=== PATIENT | male | born 1960 | race Caucasian/White ===

== ENCOUNTER 2017-01-02 19:42 | Inpatient (IN) | payer MEDICAID ==
--- NOTE | 2017-01-02 19:58 | ED ---
I, Johnson,Gerald, scribed for Nate Samayoa MD on 01/02/17 at 1953 . Neurological HPI - HPI Summary HPI Summary: LEVEL 5 CAVEAT secondary to AMS and impaired speech. This 56 y/o male presents to ED for acute onset of stroke-like symptoms between 1800 PM and 1830 PM. Pt was on wine tour and was present at a winery at 1800 PM appearing at his baseline. EMT reports slurred speech and complaints of left sided facial numbness before or at 1830 PM. Symptoms persist at time of initial evaluation. No focal weakness reported or noted at time of initial evaluation. PMHx includes afib, but not DM. Finger stick was 120. Pt denies Hx of hemorrhagic CVA. Pt articulate that he is on anticoagulant, possibly on coumadin , but pt is unable to elaborate if he had his dose today or not. Margaret whitfield was called at 1945 PM. Primary care involves Dr. Bunch. - History of Current Complaint Stated Complaint: NUMBNESS/SLURRED SPEECH Time Seen by Provider: 01/02/17 19:48 Hx Obtained From: Patient Onset/Duration: Sudden Onset Timing: Constant Character: Numbness/Tingling, Impaired Speech - Allergy/Home Medications Allergies/Adverse Reactions: Allergies Allergy/AdvReac Type Severity Reaction Status Date / Time Penicillins Allergy Unknown Unknown Verified 01/02/17 20:19 Reaction Details Sulfa Antibiotics Allergy Unknown Unknown Verified 01/02/17 20:19 Reaction Details Home Medications: Home Medications Aspirin Low Dose CHEW TAB* [Aspirin Low Dose TAB*] 81 mg PO DAILY 01/02/17 [ History Confirmed 01/02/17] Atorvastatin* [Lipitor*] 10 mg PO DAILY 01/02/17 [History Confirmed 01/02/17] Fluticasone NASAL SPRAY 50MCG* [Flonase NASAL SPRAY 50MCG*] 2 spray BOTH NARES DAILY 01/02/17 [History Confirmed 01/02/17] Metoprolol Succinate [Toprol Xl] 25 mg PO DAILY 01/02/17 [History Confirmed 07/09] Metoprolol Tartrate TAB* [Lopressor TAB*] 100 mg PO DAILY 01/02/17 [History Confirmed 01/02/17] Pantoprazole Sodium [Protonix] 40 mg PO DAILY 01/02/17 [History Confirmed ] busPIRone TAB* [Buspar TAB*] 5 mg PO BID 01/02/17 [History Confirmed 01/02/17] PMH/Surg Hx/FS Hx/Imm Hx Cardiovascular History: Reports: Hx Atrial Fibrillation - Family History Known Family History: Positive: Unknown - LEVEL 5 CAVEAT secondary to AMS and impaired speech - Social History Smoking Status (MU): Unknown if Ever Smoked - LEVEL 5 CAVEAT secondary to AMS and impaired speech Review of Systems - ROS Summary Review of Systems Summary: LEVEL 5 CAVEAT secondary to AMS Negative: Fever Positive: Other - BG of 120. Positive: Numbness - left facial, Slurred Speech All Other Systems Reviewed And Are Negative: No Physical Exam Triage Information Reviewed: Yes Vital Signs Reviewed: Yes Appearance: Positive: No Pain Distress, Ill-Appearing Skin: Positive: Warm Head/Face: Positive: Normal Head/Face Inspection Eyes: Positive: IRMA ENT: Positive: Hearing grossly normal Neck: Positive: Supple Respiratory/Lung Sounds: Positive: Clear to Auscultation, Breath Sounds Present Cardiovascular: Positive: IRR, Tachycardia Abdomen Description: Positive: Nontender, Soft Bowel Sounds: Positive: Present Musculoskeletal: Positive: Strength/ROM Intact Neurological: Positive: Facial Droop, Slurred Speech, Heel to Toe Psychiatric: Positive: Affect/Mood Appropriate, Anxious Diagnostics - Laboratory Result Diagrams: 01/02/17 20:10 01/02/17 20:10 Lab Statement: Any lab studies that have been ordered have been reviewed, and results considered in the medical decision making process. - Radiology CXR Xray Interpretation: Positive (See Comments) - PATCHY ATELECTASIS OF THE LEFT LUNG BASE Radiology Interpretation Completed By: Radiologist - CT Brain CT Interpretation: No Acute Changes - INCREASED ATTENUATION OF THE M1 SEGMENT OF THE RIGHT MCA CONCERNING FOR MCA THROMBUS WITH A DENSE MCA SIGN GIVEN THE HISTORY OF STROKE. OTHERWISE, NO ACUTE INTRACRANIAL PATHOLOGY. PRELIMINARY FINDINGS WERE DISCUSSED WITH DR. BOB AT APPROXIMATELY 8:04 PM ON JANUARY 02, 2017. CT Interpretation Completed By: Radiologist CTA Head CT Interpretation: No Acute Changes - 1. NO INTERNAL CAROTID ARTERY STENOSIS BY NASCET CRITERIA 2. NO ANEURYSM, VASCULAR MALFORMATION, OCCLUSION, OR STENOSIS OF THE VISUALIZED INTRACRANIAL CIRCULATION. CT Interpretation Completed By: Radiologist CTA Head/Neck CT Interpretation Completed By: Radiologist - EKG 2000 EKG Rhythm: Atrial Fibrillation - 124 bpm EKG Interpretation: afib with rapid ventricular response NIH Scale - NIH Scale Level of Consciousness: Alert/Keenly Responsive Ask Patient the Month and His/Her Age: Both Correct Ask Pt to Open/Close Eyes and Audio Visual Engineer/Release Non-Paretic Hand: Both Correctly Best Gaze (Only Horizontal Eye Movement): Partial Gaze Palsy Visual Field Testing: No Visual Loss Facial Paresis-Pt to Smile & Close Eyes or Grimace Symmetry: Minor Paralysis Motor Function - Right Arm: Drifts LT 10 seconds Motor Function - Left Arm: No Drift-Holds 10 Seconds Motor Function - Right Leg: Drifts LT 10 seconds Motor Function - Left Leg: No Drift-Holds 10 Seconds Limb Ataxia-Must be out of Proportion to Weakness Present: Present in One Limb Sensory (Use Pinprick to Test Arms/Legs/Trunk/Face): Normal Best Language (Describe Picture, Name Items): Some Loss Dysarthria (Read Several Words): Slurs Some Words Extinction and Inattention: No Abnormality Total Score: 7 Re-Evaluation - Re-Evaluation First Eval Change: Unchanged Comment: pt seen and evaluated in ed by dr brooks Course/Dx - Course Assessment/Plan: This 56 y/o male presents to ED for acute onset of slurred speech and left sided facial numbness. Pt was seen at [facility] at 1800 PM, appearing at his baseline. Pt suddenly developed slurred speech some time between 1800 PM and 1830 PM. Margaret mena was called 1944 PM upon arrival to ED. PMHx is positive for afib. Pt reports being on coumadin, but was not able to elaborate if he has taken today's dose or not. Blood work indicates INR of 1.05. CT Brain indicates no acute intracranial pathology with INCREASED ATTENUATION OF THE M1 SEGMENT OF THE RIGHT MCA CONCERNING FOR MCA THROMBUS WITH A DENSE MCA SIGN GIVEN THE HISTORY OF STROKE. CXR is noted with patchy atelectasis at left lung base. Dr. Brooks (Neurologist consulting sales executive) was consulted. Pt was evaluated by Dr. Brooks in ED. After clarifying his med list with [employer] [facility] and confirming that he is not on anticoagulant, tPA was ordered by Dr. Brooks. Margaret Whitfield called again with recurrent slurred speech at [address] Brooks. - Diagnoses Provider Diagnoses: CVA (cerebral vascular accident) During the Visit The Following Alert/Code Occurred: Margaret Whitfield - 1944 PM - Physician Notifications Discussed Care Of Patient With: Sandra Brooks - 1954 Instructed by Provider To: Admit As Inpatient - Critical Care Time Critical Care Time: 30-74 min Discharge - Discharge Plan Condition: Critical Disposition: ADMITTED TO [facility] documentation as recorded by the Johnson eden Soohyun accurately reflects the service I personally performed and the decisions made by me, Nate Samayoa MD.
--- NOTE | 2017-01-02 20:08 | RAD ---
HISTORY: Slurred speech COMPARISONS: None TECHNIQUE: Multiple contiguous axial CT scans were obtained of the head without intravenous contrast. FINDINGS: HEMORRHAGE/INFARCT: There is no hemorrhage or acute infarct. MASSES/SHIFT: There is no mass or shift. EXTRA-AXIAL SPACES: There are no extra-axial fluid collections. SULCI AND VENTRICLES: The sulci and ventricles are normal in size and position for the patient's stated age. CEREBRUM: There are no focal parenchymal abnormalities. BRAINSTEM: There are no focal parenchymal abnormalities. CEREBELLUM: There are no focal parenchymal abnormalities. VESSELS: There is increased attenuation of the M1 segment of the right middle cerebral artery best seen on axial image 11 and 12. PARANASAL SINUSES: The paranasal sinuses are clear. ORBITS: The orbits are unremarkable. BONES AND SOFT TISSUE: No bone or soft tissue abnormalities are noted. OTHER: None IMPRESSION: INCREASED ATTENUATION OF THE M1 SEGMENT OF THE RIGHT MCA CONCERNING FOR MCA THROMBUS WITH A DENSE MCA SIGN GIVEN THE HISTORY OF STROKE. OTHERWISE, NO ACUTE INTRACRANIAL PATHOLOGY. PRELIMINARY FINDINGS WERE DISCUSSED WITH DR. BOB AT APPROXIMATELY 8:04 PM ON JANUARY 02, 2017.
[2017-01-02 20:18] LABS: Hematocrit 48 % (42-52); Hemoglobin 15.4 g/dl (14.0-18.0); Mean Corpuscular HGB Conc 32 g/dl (31-36); Mean Corpuscular Hemoglobin 29 pg (27-31); Mean Corpuscular Volume 91 fL (80-94); Mean Platelet Volume 8 um3 (7.4-10.4); Red Blood Count 5.29 10^6/ul (4.0-5.4); Red Cell Distribution Width 14 % (10.5-15); White Blood Count 11.1 10^3/ul (3.5-10.8)
[2017-01-02] MEDS ORDERED: Alteplase* 100 MG VIAL ONE (20:23)
[2017-01-02] MEDS ORDERED: ALTEPLASE IVPB ONE (20:30)
[2017-01-02] MEDS ORDERED: ALTEPLASE IV ONE (20:30)
[2017-01-02 20:33] LABS: Albumin 3.9 g/dL (3.2-5.2); BUN/Creatinine Ratio 18.2 (8-20); Calcium 9.1 mg/dL (8.6-10.3); EGFR African American 88.7 (>60); Globulin 2.9 g/dL (2-4); HDL Cholesterol 31.7 mg/dL; Potassium 4.2 mmol/L (3.5-5.0); Total Bilirubin 0.7 mg/dL (0.2-1.0); Total Protein 6.8 g/dL (6.4-8.9)
--- NOTE | 2017-01-02 20:58 | RAD ---
HISTORY: Stroke COMPARISONS: None VIEWS:1: Single frontal portable view of the chest at 8:32 PM FINDINGS: LINES AND TUBES: None. CARDIOMEDIASTINAL SILHOUETTE: The cardiomediastinal silhouette is normal for portable technique. PLEURA: The costophrenic angles are sharp. No pleural abnormalities are noted. LUNG PARENCHYMA: There is minimal patchy alveolar opacification of left lung base near the costophrenic angle ABDOMEN: The upper abdomen is clear. There is no subphrenic gas. BONES AND SOFT TISSUES: No bone or soft tissue abnormalities are noted. IMPRESSION: PATCHY ATELECTASIS OF THE LEFT LUNG BASE
[2017-01-02] MEDS ORDERED: Iohexol 350* (CONTRAST) 500 ML MDV IV ONE (21:24)
[2017-01-02] MEDS ORDERED: Acetaminophen TAB* 325 MG PO PRN (21:44)
[2017-01-02] MEDS ORDERED: Albuterol 2.5 MG/3 ML NEB.SOL* (0.083%) INH PRN (21:44)
[2017-01-02] MEDS ORDERED: hydrALAZINE IV* 20 MG/ML VIAL IV PRN (21:47)
--- NOTE | 2017-01-02 21:50 | RAD ---
HISTORY: Stroke COMPARISONS: Head CT dated January 02, 2017 TECHNIQUE: Multiple contiguous axial CT scans were obtained of the head before and after and of the neck After the administration of nonionic intravenous contrast timed to the systemic arterial phase of contrast enhancement. Coronal and sagittal multiplanar reformations are submitted for review. Multiple 3-D maximum intensity projection reconstructions are also submitted for review. FINDINGS: CTA NECK: AORTIC ARCH: There is a normal three-vessel branching pattern of the aortic arch. There is no ostial or proximal stenosis of the cephalic great vessels. RIGHT VERTEBRAL ARTERY: The right vertebral artery is patent along its course, without stenosis. LEFT VERTEBRAL ARTERY: The left vertebral artery is patent along its course, without stenosis. DOMINANCE: The right vertebral artery is dominant. RIGHT COMMON CAROTID ARTERY: The right common carotid artery is patent. The right carotid bifurcation occurs at C5 RIGHT INTERNAL CAROTID ARTERY: There is no right internal carotid artery stenosis by NASCET criteria. RIGHT EXTERNAL CAROTID ARTERY: The right external carotid artery is unremarkable. LEFT COMMON CAROTID ARTERY: The left common carotid artery is patent. The left carotid bifurcation occurs at C5-C6 LEFT INTERNAL CAROTID ARTERY: There is no left internal carotid artery stenosis by NASCET criteria. LEFT EXTERNAL CAROTID ARTERY: The left external carotid artery is unremarkable. VENOUS CIRCULATION: The venous system is unremarkable. SALIVARY GLANDS: The parotid glands, submandibular glands, sublingual glands are normal. NASAL CAVITY/NASOPHARYNX: The nasal cavity and nasopharynx are normal. ORAL CAVITY/OROPHARYNX: The oral cavity is obscured by streak artifact from dental amalgam. The visualized oral cavity and oropharynx are unremarkable. LARYNGEAL APPARATUS/HYPOPHARYNX: The laryngeal apparatus and hypopharynx are normal. UPPER AIRWAY/UPPER ESOPHAGUS: The visualized upper airway and esophagus are normal. LUNG APICES: The lung apices are clear. THYROID GLAND: The thyroid gland is normal. LYMPH NODES: There is no lymphadenopathy by size criteria. BONES AND SOFT TISSUES: No bone or soft tissue abnormalities are noted. CTA HEAD: INTRACRANIAL CIRCULATION: There is no aneurysm, vascular malformation, occlusion, or stenosis of the visualized intracranial circulation. The anterior communicating artery complex is clear. Bilateral posterior communicating arteries are identified. VENOUS CIRCULATION: The venous system is unremarkable. PERFUSION: There is no obvious parenchymal perfusion deficit. HEMORRHAGE/INFARCT: There is no hemorrhage or acute infarct. MASSES/SHIFT: There is no mass or shift. EXTRA-AXIAL SPACES: There are no extra-axial fluid collections. SULCI AND VENTRICLES: The sulci and ventricles are normal in size and position for the patient's stated age. CEREBRUM: There are no focal parenchymal abnormalities. BRAINSTEM: There are no focal parenchymal abnormalities. CEREBELLUM: There are no focal parenchymal abnormalities. PARANASAL SINUSES: The paranasal sinuses are clear. ORBITS: The orbits are unremarkable. BONES AND SOFT TISSUE: No bone or soft tissue abnormalities are noted. OTHER: There is no abnormal enhancement. IMPRESSION: 1. NO INTERNAL CAROTID ARTERY STENOSIS BY NASCET CRITERIA 2. NO ANEURYSM, VASCULAR MALFORMATION, OCCLUSION, OR STENOSIS OF THE VISUALIZED INTRACRANIAL CIRCULATION. CPT II Codes: 3100F
[2017-01-02] MEDS ORDERED: Ondansetron INJ* 2 MG/ML VIAL IV PRN (22:04)
--- NOTE | 2017-01-02 22:07 | HP ---
H&P (Free Text) History and Physical: Cardiology: Dr Bunch [facility] Date/Time of Evaluation: 01/02/2017 2200 CC: CVA HPI: Mr Jones is a 56YO male HX AFIB who was touring a winery when he experienced the sudden onset of slurred speech, gaze disturbance, RUE/BLE ataxia , and N/T L chin. Arrived to [facility] ED at 1940. Margaret whitfield called. Luli Brooks MD neurology was in house, evaluated and administered tPA at 2034. His speech and gaze disturbance resoluved, but during tPA infusion he developed a headache with resurgence of his dysarthia and gaze disturbance prompting a repeat Margaret whitfield to be called. Repeat CT brain WO was unchanged. CTA head/neck was negative. He will be admitted to ICU for post-tPA protocol, MRI brain in AM, & ECHO in AM. PMedHx AFIB HLD GERD depression Ambulatory Orders Aspirin Low Dose CHEW TAB* [Aspirin Low Dose TAB*] 81 mg PO DAILY 01/02/17 (not taking) Atorvastatin* [Lipitor*] 10 mg PO DAILY 01/02/17 Fluticasone NASAL SPRAY 50MCG* [Flonase NASAL SPRAY 50MCG*] 2 spray BOTH NARES DAILY 01/02/17 Metoprolol Succinate [Toprol Xl] 25 mg PO DAILY 01/02/17 Metoprolol Tartrate TAB* [Lopressor TAB*] 100 mg PO DAILY 01/02/17 Pantoprazole Sodium [Protonix] 40 mg PO DAILY 01/02/17 busPIRone TAB* [Buspar TAB*] 5 mg PO BID 01/02/17 Allergies Penicillins Allergy (Unknown, Verified 01/02/17 20:19) Unknown Reaction Details Sulfa Antibiotics Allergy (Unknown, Verified 01/02/17 20:19) Unknown Reaction Details SocHx: no tobacco, minimal alcohol, HX marijuana but none currently; single; full code status FamHx: unobtainable ROS: as above, otherwise reviewed and all were negative Constitutional: NAD, normally developed, well-nourished obese white male vitals: Vital Signs Temp 36.1 C 01/02/17 19:50 Pulse 40 01/02/17 22:00 Resp 24 01/02/17 22:00 BP 139/95 01/02/17 22:00 Pulse Ox 95 01/02/17 22:00 Intake & Output 01/01/17 01/02/17 01/02/17 23:59 11:59 23:59 Intake Total 81 Balance 81 Weight 106.141 kg Intake: IV Fluids 81 HEENM: atraumatic; sclera/conjunctiva: non-icteric/clear; hearing: unable to adequately assess; oropharynx: clear, mucosa moist Neck: soft tissue: non-tender; thyroid: normal Pulmonary: clear to auscultation bilaterally, good aeration, no accessory muscle use CV: RR/RR, normal S1S2, no carotid bruit, no jugular venous distention, 2+ B DP/ PT, no edema Abdominal: soft, non-distended, non-tender, no rebound/guarding/rigidity, normoactive bowel sounds, no hepatosplenomegaly or masses, no costovertebral angle tenderness Musculoskeletal: general: grossly intact; gait: too critical currently to ambulate Integumental: normal appearance and texture of exposed skin Neurological deferred to Luli Brooks MD neurology Psychiatric orientation: AA&O to PP, uncertain as to situation affect: calm mood: acquiescent eye contact: poor content: difficult to comprehend, uncertain as to reliability responses: slowed insight: unable to accurately assess Testing: Lab Results 01/02/17 01/02/17 01/02/17 Range/Units 20:10 20:10 20:10 WBC 11.1 H (3.5-10.8) 10^3/ul RBC 5.29 (4.0-5.4) 10^6/ul Hgb 15.4 (14.0-18.0) g/dl Hct 48 (42-52) % MCV 91 (80-94) fL MCH 29 (27-31) pg MCHC 32 (31-36) g/dl RDW 14 (10.5-15) % Plt Count 285 (150-450) 10^3/ul MPV 8 (7.4-10.4) um3 Neut % (Auto) 59.2 (38-83) % Lymph % (Auto) 28.2 (25-47) % Crisp % (Auto) 9.3 H (1-9) % Eos % (Auto) 2.2 (0-6) % Baso % (Auto) 1.1 (0-2) % Absolute Neuts (auto) 6.6 (1.5-7.7) 10^3/ul Absolute Lymphs (auto) 3.1 (1.0-4.8) 10^3/ul Absolute Monos (auto) 1.0 H (0-0.8) 10^3/ul Absolute Eos (auto) 0.2 (0-0.6) 10^3/ul Absolute Basos (auto) 0.1 (0-0.2) 10^3/ul Absolute Nucleated RBC 0.02 10^3/ul Nucleated RBC % 0.1 INR (Anticoag Therapy) 1.05 (0.89-1.11) APTT 25.4 L (26.0-36.3) seconds Sodium 134 (133-145) mmol/L Potassium 4.2 (3.5-5.0) mmol/L Chloride 104 (101-111) mmol/L Carbon Dioxide 21 L (22-32) mmol/L Anion Gap 9 (2-11) mmol/L BUN 20 (6-24) mg/dL Creatinine 1.10 (0.67-1.17) mg/dL Est GFR ( Amer) 88.7 (>60) Est GFR (Non-Af Amer) 69.0 (>60) BUN/Creatinine Ratio 18.2 (8-20) Glucose 136 H (70-100) mg/dL Lactic Acid (0.5-2.0) mmol/L Calcium 9.1 (8.6-10.3) mg/dL Total Bilirubin 0.70 (0.2-1.0) mg/dL AST 24 (13-39) U/L ALT 41 (7-52) U/L Alkaline Phosphatase 55 (34-104) U/L Troponin I 0.00 (<0.04) ng/mL Total Protein 6.8 (6.4-8.9) g/dL Albumin 3.9 (3.2-5.2) g/dL Globulin 2.9 (2-4) g/dL Albumin/Globulin Ratio 1.3 (1-3) Triglycerides 96 mg/dL Cholesterol 161 mg/dL LDL Cholesterol 110 mg/dL HDL Cholesterol 31.7 mg/dL 01/02/17 Range/Units 20:10 WBC (3.5-10.8) 10^3/ul RBC (4.0-5.4) 10^6/ul Hgb (14.0-18.0) g/dl Hct (42-52) % MCV (80-94) fL MCH (27-31) pg MCHC (31-36) g/dl RDW (10.5-15) % Plt Count (150-450) 10^3/ul MPV (7.4-10.4) um3 Neut % (Auto) (38-83) % Lymph % (Auto) (25-47) % Crisp % (Auto) (1-9) % Eos % (Auto) (0-6) % Baso % (Auto) (0-2) % Absolute Neuts (auto) (1.5-7.7) 10^3/ul Absolute Lymphs (auto) (1.0-4.8) 10^3/ul Absolute Monos (auto) (0-0.8) 10^3/ul Absolute Eos (auto) (0-0.6) 10^3/ul Absolute Basos (auto) (0-0.2) 10^3/ul Absolute Nucleated RBC 10^3/ul Nucleated RBC % INR (Anticoag Therapy) (0.89-1.11) APTT (26.0-36.3) seconds Sodium (133-145) mmol/L Potassium (3.5-5.0) mmol/L Chloride (101-111) mmol/L Carbon Dioxide (22-32) mmol/L Anion Gap (2-11) mmol/L BUN (6-24) mg/dL Creatinine (0.67-1.17) mg/dL Est GFR ( Amer) (>60) Est GFR (Non-Af Amer) (>60) BUN/Creatinine Ratio (8-20) Glucose (70-100) mg/dL Lactic Acid 1.4 (0.5-2.0) mmol/L Calcium (8.6-10.3) mg/dL Total Bilirubin (0.2-1.0) mg/dL AST (13-39) U/L ALT (7-52) U/L Alkaline Phosphatase (34-104) U/L Troponin I (<0.04) ng/mL Total Protein (6.4-8.9) g/dL Albumin (3.2-5.2) g/dL Globulin (2-4) g/dL Albumin/Globulin Ratio (1-3) Triglycerides mg/dL Cholesterol mg/dL LDL Cholesterol mg/dL HDL Cholesterol mg/dL ECG, personally reviewed: AFIB rate 124, no ischemia CT brain WO, personally reviewed: IMPRESSION: INCREASED ATTENUATION OF THE M1 SEGMENT OF THE RIGHT MCA CONCERNING FOR MCA THROMBUS WITH A DENSE MCA SIGN GIVEN THE HISTORY OF STROKE. OTHERWISE, NO ACUTE INTRACRANIAL PATHOLOGY. PRELIMINARY FINDINGS WERE DISCUSSED WITH DR. BOB AT APPROXIMATELY 8:04 PM ON JANUARY 02, 2017. CTA head/neck, personally reviewed: IMPRESSION: 1. NO INTERNAL CAROTID ARTERY STENOSIS BY NASCET CRITERIA 2. NO ANEURYSM, VASCULAR MALFORMATION, OCCLUSION, OR STENOSIS OF THE VISUALIZED INTRACRANIAL CIRCULATION. Impression: 56M presenting with acute multi-focal CVA 2nd AFIB s/p tPA DIAGNOSIS & PLAN Primary acute CVA involving the posterior circulation and the likely M1 segment R MCA 2nd AFIB s/p tPA : ICU monitoring : post-tPA protocol : MRI in AM : ECHO in AM : Luli Brooks MD neurology evaluated in ED, will follow, assistance appreciated : supplemental oxygen : anti-emetic : initiate atorvastatin : strict NPO : PT/OT/ST evaluations : supportive care Secondary AFIB RVR : avoid diltiazem & metoprolol as pressures are borderline low : 0.25mg IV digoxin : permissive tachycardia up to 120s as long as symptoms are stable GERD : IV pantoprazole HLD : increase atorvastatin from 10 to 20mg daily Admission Rational: inpatient for ICU management of acute CVA s/p tPA DVTp: tPA for first 24H then reassess Code Status: full
[2017-01-02] MEDS: NS 0.9% 1000 ML* 1,000 ML IV SCH (22:28)
--- NOTE | 2017-01-02 23:36 | CONS ---
CONSULTATION REPORT: DATE OF CONSULT: 01/02/17 LAST KNOWN WELL: 18:00. ARRIVAL TO THE ER: 19:42. NIH stroke scale was 8. TPA was given at 20:35 and held briefly at 20:10, restarted at 21:20. TPA was held secondary to headache until a CT was completed and cleared. HISTORY OF PRESENT ILLNESS: David Jones is a 56-year-old gentleman with a history of atrial fibrillation who had an active day today, and it was when he went to a [employer] around 1800 he was noted to be well. At 1830, slurred speech was noted and EMS was activated per report. In the emergency room, he was noted to have slurred speech. I met him in the CT scanner where he had emesis. CT of the brain was questioned to show a dense right MCA sign. This occurred in the setting of atrial fibrillation. At first, there was question of whether he was on anticoagulant. He was having difficulty giving his names of medications. As his speech improved, we were able to call his pharmacy and confirmed with him that the only medication he takes is from his pharmacy, which is [facility] in [place]. He is on no anticoagulants. He used to be on aspirin and he is not taking that. He follows with Dr. Bunch in [place] for Cardiology. 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 PAST MEDICAL HISTORY: Includes atrial fibrillation. Other diagnoses are suspected based on medication list, however patient had difficulty giving further history. MEDICATIONS: He is on: 1. Pantoprazole 40 mg p.o. daily. 2. Buspirone 5 mg b.i.d. 3. Metoprolol. 4. Atorvastatin 10 mg p.o. daily. 5. Fluticasone 2 puffs daily. 6. Aspirin, which he is not taking. ALLERGIES: Include PENICILLIN which he was allergic to as a baby. FAMILY HISTORY: At this point, family history is not available. SOCIAL HISTORY: He does not smoke cigarettes. He has smoked marijuana in the past. He drinks 1 to 2 drinks of alcohol a month. REVIEW OF SYSTEMS: He denies any head trauma, headache prior to today, history of bleed into the brain, brain tumor, or vascular abnormality in the brain. He denies any recent surgeries, blood in urine or stool, medical procedures in the last 2 weeks. There were no exclusion criteria. PHYSICAL EXAM: Mr. Pierson blood pressure was 126/100, his initial blood pressure was 122/84; heart rate 120, which was his initial heart rate, it went up to the 140s when he had emesis in the CT scan. He later had repeat emesis in the ER; his respiratory rate was 14; his temperature was 97 degrees Fahrenheit; his saturation was 98% and went down to 87%. He was noted have an irregularly irregular rhythm. His lungs were clear to auscultation there were no carotid bruits. He was awake and alert. He had significant dysarthria, but he was unable to make himself understand and this improved with time. His pupils were equal and responsive to light. He had restricted ocular movement of the right eye with decreased adduction which resolved temporarily during initial TPA bolus and then returned. He had right facial weakness which also improved during the initial stages of TPA and then came back. He had significant dysarthria, which improved and then worsened along with the above symptoms. His facial sensation was symmetric. His palate was upgoing, tongue was midline. There was question of pronator drift on the right with bouncing of his arm, same with both legs. His strength, however, was full throughout and he had dysmetria of the right arm and bilateral legs on examination. He denied any asymmetry to pinprick, cold or light touch and there was no evidence of a neglect. His reflexes were 2+ and symmetric with the exception at the ankles that were absent. Toes were flexor response. Gait was not tested given clinical status. NIHSS was 8. DIAGNOSTIC STUDIES/LAB DATA: Data includes CT of the brain, which showed no evidence of bleed. There was increased attenuation of the M1 segment of the right MCA raising question of MCA thrombus. This film was reviewed directly. He had a repeat CT brain after developing a headache while receiving TPA, which showed no evidence of bleed. His CTA of the brain and neck showed no stenosis, aneurysm, malformation, or occlusion. His chest x-ray showed patchy atelectasis of the left lung. His laboratory test included a white count that was elevated to 11.1 with 9.3% monocytes, his INR was 1.05. His complete metabolic panel showed carbon dioxide level that was low at 21, glucose was 136. His lipid profile showed cholesterol of 161, triglycerides 96, LDL 110, and HDL 31.7, this is nonfasting. IMPRESSION: Mr. Jones is a 56-year-old gentleman with a history of atrial fibrillation now with findings consistent with posterior circulation stroke who arrived within the 3-hour window and qualified for TPA. After education regarding TPA and the benefits and risks, he agreed to proceed with treatment. His course was complicated by developing a headache while receiving TPA, and it was temporarily held to ensure that CT Brain showed no evidence of bleed. TPA was resumed to complete the dose at CT when images were reviewed.. CTA of the brain and neck was performed to look for intracranial occlusion that would lead to transfer and endovascular work, this was negative. Unfortunately, there has been some fluctuation of his symptoms in the emergency room initially with improvement and now back to original presentation. He is lying flat as much as tolerated. Provide IV hydration for perfusion. If he has vomiting, he will need to sit up. Vomiting is common in a posterior circulation stroke and I will suggest antiemetic. He is to be admitted to ICU per TPA protocol via the hospitalist team. Work up suggested includes MRI of the brain tomorrow, echocardiogram to look for clot. He will be monitored on telemetry. He has had lipid profile tonight; however, fasting lipid profile will give us a better data. I would start him on a statin. At this point, he is not allowed to have any other anti-coagulation or antiplatelets for [address] Lam will cover neurology service starting tomorrow morning. TIME SPENT: Over 2 hours were spent in direct [id number] patient care. Education was given to the patient and to family and discussions were had with the hospitalist team and ER physician regarding care. [id number]/[facility] #: [id number] AYAKA
[2017-01-03] MEDS: Pantoprazole IV* 40 MG IV SCH ×2 (00:02→09:23)
[2017-01-03 00:59] LABS: Urine Bilirubin Negative (Negative); Urine Glucose Negative (Negative); Urine Nitrite Negative (Negative)
[2017-01-03] MEDS ORDERED: Digoxin IV* 0.5 MG/2 ML AMP (0.25 MG/ML) IV SLOW PU ONE (01:00)
--- NOTE | 2017-01-03 05:08 | PN ---
Progress Note - Progress Note Note: Nursing reports ongoing poor control of AFIB with systolic ~100. Patient clinically stable. No acuña, bladder scan reads ~1000cc & patient complaining of discomfort. He is now able to give a history of urinary retention, reports taking a medication for this but not since last . Will give a 2nd dose of 0.25mg diltiazem IV. It is likely his bladder discomfort is keeping his AFIB in RVR. The RVR is decreasing his filling time and systolic pressure. His pressures are too soft to risk beta neelam or diltiazem in the setting of stroke. Case discussed with Harshal Mcgregor MD emt intermediate who advised to override the post-tPA protocol and insert a acuña hoping this improves his comfort and thus his AFIB allowing better pressures.
[2017-01-03] MEDS: NS 0.9% 1000 ML* 1,000 ML IV SCH ×2 (05:41→22:29)
[2017-01-03] MEDS: Atorvastatin* 20 MG TAB PO SCH (09:23)
[2017-01-03] MEDS ORDERED: Metoprolol Tartrate IV* 1 MG/ML 5 ML VIAL IV PRN (09:53)
--- NOTE | 2017-01-03 11:18 | RAD ---
HISTORY: MRI clearance in a patient that reports "metal shavings in eye" COMPARISON: None. FINDINGS: Frontal and lateral views of the orbits. There is no radiopaque foreign body attributable to the orbits. The orbital rims are intact. The sinuses are clear. The zygomatic arches are normal. IMPRESSION: No radiopaque foreign body attributable to the orbits.
--- NOTE | 2017-01-03 11:24 | RAD ---
INDICATION: Patient reports possibly having metal I dimension abdomen prior to MRI COMPARISON: None TECHNIQUE: 2 views the abdomen were obtained. FINDINGS: No foreign body or metal surgical prosthesis is visualized in the abdomen and pelvis. IMPRESSION: NO FOREIGN BODY, METALLIC OR OTHERWISE, IS VISUALIZED IN THE AP PROJECTION OF THE ABDOMEN AND PELVIS.
--- NOTE | 2017-01-03 11:25 | ECHO ---
Patient: SILVERIO DORANTES [facility] Rec#: [id number] : 1960 Date: 01/03/2017 Age: 56y Height: 180 cm / 70.9 in Weight: 106 kg / 233.6 lbs Sex: M BSA: 2.3 Room#: ICU 3 Admit Date#: 01/02/2017 Type: Inpatient Referring: Jordan Ramirez MD Reading: Anuj Mckeon MD Floor Cashier: Modesta Finley RN RDCS Transthoracic Echocardiogram Indication: CVA BP: 113/45 HR: 103 Rhythm: A-Fib Findings History: Atrial fibrillation Technical Comments: The study quality is fair. The study is technically limited due to patient body habitus. Completed at 1110. Left Ventricle: The left ventricular chamber size is decreased. Mild concentric left ventricular hypertrophy is observed. Global left ventricular wall motion and contractility are within normal limits. There is normal left ventricular systolic function. The estimated ejection fraction is 55-60%. The assessment of diastolic function is non-diagnostic. Left Atrium: The left atrium is mildly dilated. Right Ventricle: The right ventricle wall thickness is moderately increased. The right ventricular cavity size is normal. The right ventricular global systolic function is normal. Right Atrium: The right atrium is mildly dilated. Aortic Valve: The aortic valve is trileaflet. The aortic valve leaflets are mildly thickened. There is no evidence of aortic regurgitation. There is no evidence of aortic stenosis. Mitral Valve: The mitral valve leaflets are mildly thickened. There is a trace of mitral regurgitation. There is no evidence of mitral stenosis. Tricuspid Valve: The tricuspid valve leaflets are normal. There is trace tricuspid regurgitation. No pulmonary hypertension is noted. Pulmonic Valve: The pulmonic valve appears normal. There is a trace pulmonic regurgitation. There is no pulmonic stenosis. Pericardium: There is no significant pericardial effusion. A pericardial fat pad is visualized. Aorta: There is mild dilatation of the ascending aorta.3.6 cm There is no dilatation of the aortic arch. There is no dilation of the aortic root. Pulmonary Artery: The main pulmonary artery is not well visualized. Venous: The inferior vena cava appears normal in size. There is a greater than 50% respiratory change in the inferior vena cava dimension. Summary: There was not any prior study for comparison. Conclusions Mild concentric left ventricular hypertrophy is observed. Global left ventricular wall motion and contractility are within normal limits. The estimated ejection fraction is 55-60%. The right ventricular global systolic function is normal. There is no evidence of aortic stenosis. There is a trace of mitral regurgitation. There is trace tricuspid regurgitation. No pulmonary hypertension is noted. There is no significant pericardial effusion. There is mild dilatation of the ascending aorta.3.6 cm Measurements Name Value Normal Range RVDdMajor (2D) 3.7 cm (2.2 - 4.4) RVAW (2D) 1.1 cm (0.2 - 0.5) RAd ISD 4CH 5.4 cm (3.4 - 4.9) RA (A4C)W 4.2 cm (2.9 - 4.6) IVSd (2D) 1.3 cm (0.6 - 1) LVPWd (2D) 1.1 cm (0.6 - 1) LVIDd (2D) 3.2 cm (3.6 - 5.4) LVIDs (2D) 2.2 cm - LV FS (2D) 31 % (25 - 45) Aortic Annulus 2.4 cm (1.4 - 2.6) Ao root diameter (2D) 3.2 cm (2.1 - 3.5) Ascending Ao 3.6 cm (2.1 - 3.4) Aortic arch 2.7 cm (1.8 - 3.4) LA dimension (AP) 2D 3.6 cm (2.3 - 3.8) LAd ISD 4CH 6 cm (2.9 - 5.3) LA ISD 4CH W 4.4 cm (2.5 - 4.5) Name Value Normal Range LA ESV SP 4CH (A/L) 85 ml - LA ESV SP 2CH (A/L) 68 ml - LA ESV BP (A/L) 82 ml - LA ESV BP (A/L) index 36 ml/m2 - LA ESV SP 4CH (MOD) 78 ml - LA ESV SP 2CH (MOD) 65 ml - Name Value Normal Range MV E-wave Vmax 0.99 m/sec - MV deceleration time 165 msec - LV septal e' Vmax 0.09 m/sec - LV lateral e' Vmax 0.11 m/sec - LV E:e' septal ratio 11 ratio - LV E:e' lateral ratio 9 ratio - Name Value Normal Range AV Vmax 1.1 m/sec - AV VTI 19.1 cm - AV peak gradient 4 mmHg - AV mean gradient 2.6 mmHg - LVOT Vmax 1.1 m/sec - LVOT VTI 18.5 cm - LVOT peak gradient 5 mmHg - LVOT mean gradient 2.7 mmHg - COLTON Vmax 0.69 m/sec - Name Value Normal Range TR Vmax 2.2 m/sec - TR peak gradient 19 mmHg - RAP 3 mmHg - RVSP 22 mmHg - IVC diameter 2 cm - Name Value Normal Range PV Vmax 0.81 m/sec -
--- NOTE | 2017-01-03 11:46 | PN ---
Progress Note - Progress Note Note: CRITICAL CARE MEDICINE Date: 01/03/17 Time: 1000 SUBJECTIVE: Patient seen and examined. Called this am regarding urinary retention and his overall dyanmics; risk benefit for acuña to be placed PHYSICAL EXAM: Vital Signs: Reviewed. Neurologic: awake, dysarthria but communicating with quite the slurred speech and R sided weakness noted HEENT: Sclera anicteric. Trachea midline. Cardiovascular: S1 S2 irr Respiratory: clear Abdomen: Soft, nt. Extremities: Warm. Access: piv; acuña LABS: Reviewed. IMAGING: Reviewed. MEDICATIONS: Reviewed. ASSESSMENT: 56 M acute posterior circulation cva - seemingly with some aborted dynamcis post tpa but with residual this am still. For MRI today. CT tonight at 8pm prior to asa therapy; will need to start full anticoagulation when ok with cards. Inc statin. check A1c. speech eval for swallow and f/u therapy. Pt eval. acuña today given retention and look to dc when mobile. IV metoprolol this am for rate control afib and then to po. Can ask cards to eval. TTE. Likely cardioembolic and will need full anticoag regardless given his afib and cva. Neuro to f/u Supportive and preventative care as ordered. Disposition: ICU today Code Status: Full Critical Care Time: 30min Noemi Mcgregor DO
--- NOTE | 2017-01-03 14:54 | RAD ---
Indication: TIA, stroke. Image Sequences: Sagittal and axial T1, axial T2, FLAIR, diffusion and susceptibility weighted images of the brain were obtained. Ventricular structures are midline. No midline shift is noted. The extra-axial spaces are unremarkable. Tiny focal areas of restriction of diffusion are noted in the left cerebellum. At least three tiny lesions are noted. There is also one tiny lesion in the superior cerebellum of each cerebellar hemisphere. Restricted diffusion is noted in the left avni as well. No evidence of abnormal signal is noted in the supratentorial cerebrum. No midline shift is noted. Central and cortical atrophy is noted. Susceptibility weighted artifact demonstrates tiny areas of petechial hemorrhage in the right cerebellar hemisphere likely from prior hemosiderin deposition. IMPRESSION: Diffusion-weighted images demonstrate punctate areas of restriction of diffusion in both cerebellar hemispheres as well as in the left avni. Possibility of embolic event involving the posterior circulation is suggested.
--- NOTE | 2017-01-03 15:45 | PN ---
NEUROLOGICAL FOLLOWUP NOTE: DATE OF SERVICE: 01/03/17 PATIENT OF: Dr. Mcgregor. HISTORY: This is a 56-year-old man who is status post TPA last evening with a history of acute onset of slurred speech with emesis and dysarthria, decreased adduction of his right eye and right facial weakness, as well as dysmetria of his right arm and both legs. He received TPA and had a repeat CT scan that was negative and he got a headache. He had a negative CTA. He has been clinically stable since yesterday. His meds continue to be Lipitor , albuterol, hydralazine and metoprolol. PHYSICAL EXAMINATION: Temperature he is afebrile, pulse of 104, irregular, respiratory rate 16, blood pressure 122/77. He is alert and oriented. He has dysarthria. He has right exotropia and right facial weakness which apparently is unchanged according to nurses. He had mild right hemiparesis. He had dysmetria more on the right than the left. Leg strength is 5/5. Reflexes were 1. Toes were equivocal to downgoing. Labs were unremarkable and were from yesterday. He had an MRI scan this morning earlier today which showed acute brainstem and cerebellar strokes. Report is not on the chart as of yet. Mr. Jones had a posterior circulation stroke in the setting of atrial fibrillation and he will need to be anticoagulated, but I would not do this at this point because of his recent stroke after a CT scan. Tonight he should go on a full strength aspirin 325 and his statin should be increased to bring his LDL below 70. Given his double vision from his exotropia, I am recommending an alternating eye patch. This would help prevent headache, as well as make him feel more comfortable. Thank your for sharing his case. [id number]/[facility] #: [id number] AYAKA
--- NOTE | 2017-01-03 20:39 | RAD ---
HISTORY: Follow-up, status post TPA administration, stroke COMPARISONS: January 02, 2017 at 7:53 PM TECHNIQUE: Multiple contiguous axial CT scans were obtained of the head without intravenous contrast. FINDINGS: HEMORRHAGE/INFARCT: There is no hemorrhage or acute infarct. MASSES/SHIFT: There is no mass or shift. EXTRA-AXIAL SPACES: There are no extra-axial fluid collections. SULCI AND VENTRICLES: The sulci and ventricles are normal in size and position for the patient's stated age. CEREBRUM: There are no focal parenchymal abnormalities. BRAINSTEM: There are no focal parenchymal abnormalities. CEREBELLUM: There are no focal parenchymal abnormalities. VESSELS: The vessels are grossly normal. PARANASAL SINUSES: The paranasal sinuses are clear. ORBITS: The orbits are unremarkable. BONES AND SOFT TISSUE: No bone or soft tissue abnormalities are noted. OTHER: None IMPRESSION: NO ACUTE INTRACRANIAL PATHOLOGY.
[2017-01-04 05:44] LABS: Hematocrit 45 % (42-52); Hemoglobin 14.8 g/dl (14.0-18.0); Mean Corpuscular HGB Conc 33 g/dl (31-36); Mean Corpuscular Hemoglobin 30 pg (27-31); Mean Corpuscular Volume 91 fL (80-94); Mean Platelet Volume 8 um3 (7.4-10.4); Red Blood Count 4.96 10^6/ul (4.0-5.4); Red Cell Distribution Width 14 % (10.5-15)
[2017-01-04] MEDS: NS 0.9% 1000 ML* 1,000 ML IV SCH (06:08)
[2017-01-04 06:13] LABS: BUN/Creatinine Ratio 12.6 (8-20); Calcium 8.5 mg/dL (8.6-10.3); EGFR African American 116.3 (>60); EGFR Non-African American 90.4 (>60); Phosphorus 2.5 mg/dL (2.5-5.0); Potassium 4.2 mmol/L (3.5-5.0)
[2017-01-04] MEDS: Atorvastatin* 20 MG TAB PO SCH (08:07)
[2017-01-04] MEDS: Pantoprazole IV* 40 MG IV SCH (08:38)
--- NOTE | 2017-01-04 09:31 | PN ---
Progress Note - Progress Note Note: CRITICAL CARE MEDICINE Date: 01/04/17 Time: 900 SUBJECTIVE: Patient seen and examined. depressed and crying. PHYSICAL EXAM: Vital Signs: Reviewed. Neurologic: awake, dysarthria but communicating. residual R sided weakness HEENT: Sclera anicteric. Trachea midline. Cardiovascular: S1 S2 irr Respiratory: clear Abdomen: Soft, nt. Extremities: Warm. Access: piv; acuña LABS: Reviewed. IMAGING: Reviewed. MEDICATIONS: Reviewed. ASSESSMENT: 56 M acute posterior circulation cva with avni and cerebellar involvement MRI reviewed with pt and niece yesterday On asa, statin therapy; will need to start full anticoagulation in a few days. Po today and speech follow up. Pt. oob. dc acuña. back on bb po. resume buspar. spiritual care and care social work f/u Neuro to f/u Supportive and preventative care as ordered. Disposition: ICU today and to floor later today or tomorrow with afib hr better controlled Code Status: Full Critical Care Time: 30min Noemi Mcgregor DO
[2017-01-04] MEDS: Aspirin TAB* 325 MG PO SCH (10:17)
[2017-01-04] MEDS: Atorvastatin* 40 MG TAB PO SCH (10:17)
[2017-01-04] MEDS: busPIRone TAB* 5 MG PO SCH ×2 (10:17→21:09)
[2017-01-04] MEDS: Metoprolol Tartrate TAB* 50 mg PO SCH ×2 (10:17→21:09)
[2017-01-04] MEDS ORDERED: Metoprolol Tartrate IV* 1 MG/ML 5 ML VIAL IV ONE (11:00)
[2017-01-04] MEDS ORDERED: Metoprolol Tartrate IV* 1 MG/ML 5 ML VIAL ONE (11:02)
[2017-01-04] MEDS ORDERED: Digoxin IV* 0.5 MG/2 ML AMP (0.25 MG/ML) IV SLOW PU ONE (16:39)
[2017-01-05] MEDS: Omeprazole CAP* 20 MG PO SCH (06:06)
[2017-01-05] MEDS: Metoprolol Tartrate TAB* 50 mg PO SCH ×3 (08:58→21:28)
[2017-01-05] MEDS: busPIRone TAB* 5 MG PO SCH ×2 (08:58→21:28)
[2017-01-05] MEDS: Aspirin TAB* 325 MG PO SCH (08:58)
[2017-01-05] MEDS: Atorvastatin* 40 MG TAB PO SCH (08:58)
--- NOTE | 2017-01-05 11:48 | PN ---
Progress Note - Progress Note Note: CRITICAL CARE MEDICINE Date: 01/05/17 Time: 935 SUBJECTIVE: Patient seen and examined. better PHYSICAL EXAM: Vital Signs: Reviewed. Neurologic: awake, dysarthria but communicating. residual R sided weakness better HEENT: Sclera anicteric. Trachea midline. Cardiovascular: S1 S2 irr Respiratory: clear Abdomen: Soft, nt. Extremities: Warm. Access: piv; acuña resumed LABS: Reviewed. IMAGING: Reviewed. MEDICATIONS: Reviewed. ASSESSMENT: 56 M acute posterior circulation cva with avni and cerebellar involvement stable and slow improvement needs pmru evaluating. on asa and can look to conver to full anticoag after 3-5 days post cva or per neuro. on statin therapy Po encouraged and speech follow up. Pt. oob. dc acuña; straight cath prn while recovering Inc bb to tid to see if hr can maintain better rate control vs needing additional agents. resumed oupt buspar. spiritual care and care social work f/u Consider psychology eval prior to discharge given his depressive degrees Neuro f/u Supportive and preventative care as ordered. Disposition: floor with tele to adjust po meds for his afib Code Status: Full Critical Care Time: 25min FCierra Mcgregor DO
[2017-01-05] MEDS: Senna TAB PO PRN (23:54)
[2017-01-06] MEDS: Omeprazole CAP* 20 MG PO SCH (06:14)
[2017-01-06 07:05] LABS: Hematocrit 48 % (42-52); Hemoglobin 15.6 g/dl (14.0-18.0); Mean Corpuscular HGB Conc 33 g/dl (31-36); Mean Corpuscular Hemoglobin 30 pg (27-31); Mean Corpuscular Volume 91 fL (80-94); Mean Platelet Volume 8 um3 (7.4-10.4); Red Blood Count 5.27 10^6/ul (4.0-5.4); Red Cell Distribution Width 14 % (10.5-15); White Blood Count 7.5 10^3/ul (3.5-10.8)
[2017-01-06 07:16] LABS: EGFR African American 107.7 (>60); EGFR Non-African American 83.7 (>60); Potassium 3.7 mmol/L (3.5-5.0)
[2017-01-06] MEDS: Metoprolol Tartrate TAB* 50 mg PO SCH ×3 (10:28→20:50)
[2017-01-06] MEDS: Atorvastatin* 40 MG TAB PO SCH (10:28)
[2017-01-06] MEDS: Aspirin TAB* 325 MG PO SCH (10:29)
[2017-01-06] MEDS: busPIRone TAB* 5 MG PO SCH ×2 (10:29→20:50)
--- NOTE | 2017-01-06 19:25 | PN ---
Subjective Date of Service: 01/06/17 Interval History: Pt is feeling ok but is frustrated that he had a stroke. He questions who's fault it is he had the stroke. He is frustrated with doctors stating that no one is listening. He states he is feeling depressed and is not sure why he should go to rehab. Objective Active Medications: Acetaminophen (Tylenol Tab*) 650 mg PO Q6H PRN PRN Reason: FEVER/PAIN Albuterol (Ventolin 2.5 Mg/3 Ml Neb.Kelsey*) 2.5 mg INH Q2H PRN PRN Reason: SOB/WHEEZING Aspirin (Aspirin Tab*) 325 mg PO DAILY [facility] Last Admin: 01/06/17 10:29 Dose: 325 mg Atorvastatin Calcium (Lipitor*) 40 mg PO QAM [facility] Last Admin: 01/06/17 10:28 Dose: 40 mg Buspirone HCl (Buspar Tab*) 5 mg PO BID [facility] Last Admin: 01/06/17 10:29 Dose: 5 mg Metoprolol Tartrate (Lopressor Tab*) 50 mg PO TID [facility] Last Admin: 01/06/17 14:11 Dose: 50 mg Mirtazapine (Remeron Tab*) 15 mg PO BEDTIME [facility] Omeprazole (Prilosec Cap*) 20 mg PO DAILY@0600 [facility] Last Admin: 01/06/17 06:14 Dose: 20 mg Ondansetron HCl (Zofran Inj*) 4 mg IV Q6H PRN PRN Reason: NAUSEA Senna (Senokot Tab*) 1 tab PO BEDTIME PRN PRN Reason: CONSTIPATION Last Admin: 01/05/17 23:54 Dose: 1 tab Vital Signs 01/05/17 01/05/17 01/05/17 19:20 19:40 20:00 Temperature 97.2 F Pulse Rate 110 162 Respiratory 24 24 Rate Blood Pressure 136/39 (mmHg) O2 Sat by Pulse 96 Oximetry 01/05/17 01/06/17 01/06/17 21:29 00:19 03:29 Temperature 97.5 F 97.6 F Pulse Rate 71 73 41 Respiratory 16 16 Rate Blood Pressure 108/71 93/58 109/62 (mmHg) O2 Sat by Pulse 95 95 Oximetry 01/06/17 01/06/17 01/06/17 07:28 08:00 08:32 Temperature 97.5 F 98.4 F Pulse Rate 44 97 Respiratory 20 16 16 Rate Blood Pressure 115/60 (mmHg) O2 Sat by Pulse 93 91 Oximetry 01/06/17 01/06/17 01/06/17 11:48 15:15 15:54 Temperature 97.3 F 97.8 F Pulse Rate 66 57 Respiratory 20 17 Rate Blood Pressure 111/65 113/67 (mmHg) O2 Sat by Pulse 94 94 95 Oximetry Oxygen Devices in Use Now: None Appearance: Middle aged male sitting up in a recliner, NAD Eyes: No Scleral Icterus Ears/Nose/Mouth/Throat: Mucous Membranes Moist Respiratory: Symmetrical Chest Expansion and Respiratory Effort, Clear to Auscultation Cardiovascular: NL Sounds; No Murmurs; No JVD, - - irregularly irregular, tachycardic Abdominal: NL Sounds; No Tenderness; No Distention Extremities: No Clubbing, Cyanosis Skin: No Rash or Ulcers, No Nodules or Sclerosis Neurological: Alert and Oriented x 3, - - mild dysarthria, R UE/LE weakness Result Diagrams: 01/06/17 06:09 01/06/17 06:09 Microbiology and Other Data: Microbiology 01/02/17 22:40 Nasal Screen MRSA (PCR)(GAVIN) - Final Nasal Mrsa Negative Assess/Plan/Problems-Billing Mr Jones is a 56 yo M who has a h/o afib who presented to the ER with c/o dysarthria, visual disturbance, RUE weakness and bilateral LE weakness and was found to have acute CVA. - Patient Problems (1) Cerebrovascular accident involving posterior circulation Current Visit: Yes Status: Acute Code(s): I63.50 - CEREB INFRC DUE TO UNSP OCCLS OR STENOS OF UNSP CEREB ARTERY SNOMED Code(s): 549539305 Comment: The patient received tPA on presentation to the ER. His deficits have improved. He is going to need STR and his information has been sent to rehab facilities. Continue ASA for now. He will need to be started on anticoagulation but the timing of this needs to be determined. Continue PT/OT. (2) Afib Current Visit: Yes Status: Acute Code(s): I48.91 - UNSPECIFIED ATRIAL FIBRILLATION SNOMED Code(s): 40727971 Comment: The patient is uncontrolled afib. He has been having pauses of about 2.5 seconds intermittently. If HR is not controlled tomorrow will need to adjust his rate controlling agents. As above will need to be on full anticoagulation but will discuss timing of starting this with neurology tomorrow. (3) HLD (hyperlipidemia) Current Visit: Yes Status: Acute Code(s): E78.5 - HYPERLIPIDEMIA, UNSPECIFIED SNOMED Code(s): 16611806 Comment: Continue lipitor. (4) GERD (gastroesophageal reflux disease) Current Visit: Yes Status: Acute Code(s): K21.9 - GASTRO-ESOPHAGEAL REFLUX DISEASE WITHOUT ESOPHAGITIS SNOMED Code(s): 404288317 Comment: Continue omeprazole. (5) Depression Current Visit: Yes Status: Acute Code(s): F32.9 - MAJOR DEPRESSIVE DISORDER , SINGLE EPISODE, UNSPECIFIED SNOMED Code(s): 73731319 Comment: Start remeron tonight. He cried many times throughout my evaluation. He is very discouraged about having the stroke. (6) DVT prophylaxis Current Visit: Yes Status: Acute Code(s): FZQ0056 - SNOMED Code(s): 910972260 Comment: SCDs (7) Full code status Current Visit: Yes Status: Acute Code(s): Z78.9 - OTHER SPECIFIED HEALTH STATUS SNOMED Code(s): 837161628
[2017-01-06] MEDS: Senna TAB PO PRN (20:51)
[2017-01-06] MEDS: Mirtazapine TAB* 15 MG PO SCH (20:51)
[2017-01-07] MEDS: Omeprazole CAP* 20 MG PO SCH (04:54)
[2017-01-07] MEDS: Metoprolol Tartrate TAB* 50 mg PO SCH ×3 (08:15→20:52)
[2017-01-07] MEDS: Atorvastatin* 40 MG TAB PO SCH (08:15)
[2017-01-07] MEDS: Aspirin TAB* 325 MG PO SCH (08:15)
[2017-01-07] MEDS: busPIRone TAB* 5 MG PO SCH ×2 (08:15→20:52)
--- NOTE | 2017-01-07 08:59 | PN ---
Subjective Date of Service: 01/07/17 Interval History: Pt is feeling very depressed stating "I don't know why I am even eating." He cries about being in the hospital/rehab over his birthday. He denies any pain. No SOB. He has been coughing but not bringing up any sputum. Objective Active Medications: Acetaminophen (Tylenol Tab*) 650 mg PO Q6H PRN PRN Reason: FEVER/PAIN Albuterol (Ventolin 2.5 Mg/3 Ml Neb.Kelsey*) 2.5 mg INH Q2H PRN PRN Reason: SOB/WHEEZING Aspirin (Aspirin Tab*) 325 mg PO DAILY [facility] Last Admin: 01/07/17 08:15 Dose: 325 mg Atorvastatin Calcium (Lipitor*) 40 mg PO QAM [facility] Last Admin: 01/07/17 08:15 Dose: 40 mg Buspirone HCl (Buspar Tab*) 5 mg PO BID [facility] Last Admin: 01/07/17 08:15 Dose: 5 mg Metoprolol Tartrate (Lopressor Tab*) 50 mg PO TID [facility] Last Admin: 01/07/17 08:15 Dose: 50 mg Mirtazapine (Remeron Tab*) 15 mg PO BEDTIME [facility] Last Admin: 01/06/17 20:51 Dose: 15 mg Omeprazole (Prilosec Cap*) 20 mg PO DAILY@0600 [facility] Last Admin: 01/07/17 04:54 Dose: 20 mg Ondansetron HCl (Zofran Inj*) 4 mg IV Q6H PRN PRN Reason: NAUSEA Senna (Senokot Tab*) 1 tab PO BEDTIME PRN PRN Reason: CONSTIPATION Last Admin: 01/06/17 20:51 Dose: 1 tab Vital Signs 01/06/17 01/06/17 01/06/17 11:48 15:15 15:54 Temperature 97.3 F 97.8 F Pulse Rate 66 57 Respiratory 20 17 Rate Blood Pressure 111/65 113/67 (mmHg) O2 Sat by Pulse 94 94 95 Oximetry 01/06/17 01/06/17 01/06/17 19:38 20:00 20:51 Temperature 97.3 F Pulse Rate 47 100 Respiratory 24 18 Rate Blood Pressure 131/87 (mmHg) O2 Sat by Pulse 97 Oximetry 01/07/17 01/07/17 01/07/17 00:00 00:37 04:10 Temperature 98.4 F 98.1 F Pulse Rate 94 68 Respiratory 16 16 Rate Blood Pressure 95/59 99/79 (mmHg) O2 Sat by Pulse 93 93 96 Oximetry 01/07/17 01/07/17 07:41 07:57 Temperature 97.5 F Pulse Rate 107 Respiratory 16 18 Rate Blood Pressure 102/58 (mmHg) O2 Sat by Pulse 94 Oximetry Oxygen Devices in Use Now: None Appearance: Middle aged male sitting up in bed, eating, NAD Eyes: No Scleral Icterus Ears/Nose/Mouth/Throat: Mucous Membranes Moist Respiratory: Symmetrical Chest Expansion and Respiratory Effort, Clear to Auscultation Cardiovascular: NL Sounds; No Murmurs; No JVD, - - irregularly irregular, tachycardic Abdominal: NL Sounds; No Tenderness; No Distention Extremities: No Clubbing, Cyanosis Skin: No Rash or Ulcers, No Nodules or Sclerosis Neurological: Alert and Oriented x 3, - - + dysarthric speech, R UE with weakness and clumsiness, R LE not tested today Result Diagrams: 01/06/17 06:09 01/06/17 06:09 Microbiology and Other Data: Microbiology 01/02/17 22:40 Nasal Screen MRSA (PCR)(GAVIN) - Final Nasal Mrsa Negative Assess/Plan/Problems-Billing Mr Jones is a 56 yo M who has a h/o afib who presented to the ER with c/o dysarthria, visual disturbance, RUE weakness and bilateral LE weakness and was found to have acute CVA. - Patient Problems (1) Cerebrovascular accident involving posterior circulation Current Visit: Yes Status: Acute Code(s): I63.50 - CEREB INFRC DUE TO UNSP OCCLS OR STENOS OF UNSP CEREB ARTERY SNOMED Code(s): 139863900 Comment: The patient received tPA on presentation to the ER. His deficits have improved though he still needs STR. Continue ASA for now but he will need full anticoagulation. WIll discuss with neuro today about timing of starting. He is very depressed about the stroke. Continue PT/OT/speech therapy. (2) Afib Current Visit: Yes Status: Acute Code(s): I48.91 - UNSPECIFIED ATRIAL FIBRILLATION SNOMED Code(s): 37218570 Comment: HR remains uncontrolled. Will try to add digoxin and see if his HR improves. His BP is low normal making it somewhat difficult to treat the rapid afib. (3) Depression Current Visit: Yes Status: Acute Code(s): F32.9 - MAJOR DEPRESSIVE DISORDER , SINGLE EPISODE, UNSPECIFIED SNOMED Code(s): 00794992 Comment: The patient was started on remeron last night. Will continue this for now. Will get psychiatry consult due to pt continuing to state that he would be better off or that he has nothing to live for. (4) HLD (hyperlipidemia) Current Visit: Yes Status: Acute Code(s): E78.5 - HYPERLIPIDEMIA, UNSPECIFIED SNOMED Code(s): 71498943 Comment: Continue lipitor. (5) GERD (gastroesophageal reflux disease) Current Visit: Yes Status: Acute Code(s): K21.9 - GASTRO-ESOPHAGEAL REFLUX DISEASE WITHOUT ESOPHAGITIS SNOMED Code(s): 031420085 Comment: Continue omeprazole. (6) DVT prophylaxis Current Visit: Yes Status: Acute Code(s): TAP5480 - SNOMED Code(s): 031929339 Comment: SCDs (7) Full code status Current Visit: Yes Status: Acute Code(s): Z78.9 - OTHER SPECIFIED HEALTH STATUS SNOMED Code(s): 891764444
[2017-01-07] MEDS: Digoxin IV* 0.5 MG/2 ML AMP (0.25 MG/ML) IV SLOW PU SCH ×2 (09:12→15:26)
--- NOTE | 2017-01-07 16:45 | CONS ---
CONSULTATION REPORT: DATE OF CONSULT: 01/07/17 ATTENDING PHYSICIAN: Dr. Jennifer Esteves. CONSULTING PHYSICIAN: Dr. Ben Meng. REASON FOR CONSULT: Suicidal statements. HISTORY OF PRESENT ILLNESS: The patient is a 56-year-old single white male with an unspecified hist ory of depression and anxiety, who was admitted to the medical service here at [facility] on 01/02/17 with what is apparently a posterior cerebral stroke leading to symptoms of ataxia, neur asthenia, and tingling of his chin as well as dysarthric speech, who is currently on the [facility] uni t receiving telemetry and medical stabilization. Psychiatry is consulted due to several suicidal st atements made by the patient. I was able to speak with his primary provider here, Dr. Jennifer che, who indicated that the patient has a history of atrial fibrillation and had a stroke leading to b rief stabilization and thrombolytic treatment in the ICU. He has made suicidal statements to the [facility] that he will "get a gun and end it." He has been somewhat difficult for the primary team to wo rk with given that he is very negativistic and has a somewhat hostile attitude towards care provider s. An example of this is that he is apparently blaming his primary care provider for his recent str baldev. When I meet with him, he seems to be expecting me, but refuses for the most part to make eye c ontact. He asks pessimistic questions such as, "Why does everybody work? What is it worth?" He go es on to make several complaints about political topics such as taxation and people who take advanta ge of the government to pay their bills. He continues to make negative statements such as, "This wo rld isn't what it should be. Why should I care?" I did ask him about depressed mood which he krista es saying instead, "I am pissed off with the world like this, why wouldn't I be?" He does admit to anxiety, but when offered a voluntary bed in the behavioral science unit, he declines this stating t hat just because he had a stroke, he is not crazy. Mr. Jones goes on to tell me that he has been making suicidal statements since he was a kid, but then states that he is very sabianist and states that suicide is prohibited in the [employer]ism zackery. He does allude to his zackery when making the stat ement "I don't understand why God had this happen to me. I worked hard and I tried to do the right thing." When I asked him about so-called neurovegetative symptoms of depression, he is dismissive a nd refuses to answer such questions. He does give me permission to contact his brother, Mr. Nate kaplan; however, that number is busy after several attempts and so I could not leave a message or ge t collateral information. PSYCHIATRIC HISTORY: The patient admits that he received counseling when he lived in [place] close to 10 years ago and states that he was placed on an antidepressant for approximately 6 months, but states that these were minimally helpful and he self-discontinued outpatient treatment. He denies a ny history of being psychiatrically admitted. I did ask him about a history of abuse, to which he i s vague stating, "The world is an abusive place." SUBSTANCE ABUSE HISTORY: Largely negative. He states that he was never a smoker and only drinks al cohol socially and does not abuse illicit drugs. PAST MEDICAL HISTORY: Significant for atrial fibrillation, hyperlipidemia, and gastroesophageal ref lux disease. FAMILY PSYCHIATRIC HISTORY: Noncontributory or at least he states that he is unaware of anyone with mental health problems. SOCIAL HISTORY: The patient was born and raised in [place], [place], although he lived in [place], [place], for over 20 years, returning to [place], [place], 7 years ago. He does have 1 son with whom he is estranged and has had no contact with for the past 5 years. He has never been jose ied. Both of his parents are . The patient is the third out of 4 children. He lives alone in a house that his parents bought for him in [place], [place]. 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 He was educated throug h the 9th grade in the [place], but never had any further school or college. He denies any hi story of service. Currently, he is single. He self-identifies as Ca[employer]ism and goes [facility] here in [place], [place]. He denies having a girlfriend or being s exually active. MENTAL STATUS EXAM: The patient is a middle-aged white male who is dressed in a patient gown. He i s lying supine in bed with an arm draped over his head. Occasionally, he will poke his eyes out from under his arm to make eye contact with this observer, but it is only fleeting. His speech is dysar thric and difficult at first to understand, although it becomes easier the more he speaks. Mood is clearly dysthymic with a constricted affect. Thought process is linear with a somewhat slowed rate. Thought content is fixated on negative ideas about the world and the [place] government. He does endorse suicidal ideations, but no plan and he states that suicidal ideations are chronic phenomeno n with him, but that he has never acted upon these. He denies homicidality. He denies auditory or visual hallucinations. Insight and judgment are limited given his refusal to receive psychiatric tr eatment. Cognitively, he is awake, but somewhat somnolent and has what would appear to be an averag e intellect. DIAGNOSES: Gore I: Major depressive disorder, recurrent, severe without psychotic features. Gore II : Rule out cluster B personality traits. ASSESSMENT: The patient is a 56-year-old single white male with a history of unspecified depression and anxiety, who has suffered a stroke and is receiving care on the inpatient unit for this, who ma de passive suicidal statements to the primary team, and Psychiatry is evaluating him because of thes e statements. The patient denies any imminent risk to himself. He denies owning any firearms and h e does not appear to be someone who would need a one-to-one. I have tried to reach his family for c alphonso information and I will continue to do so. Right now, it is uncertain whether he would hesham efit from inpatient psychiatric treatment, although I do see that the inpatient team has already sta rted him on a trial of low-dose mirtazapine 15 mg p.o. q.h.s. RECOMMENDATIONS TO PRIMARY TEAM: The patient is not in need of one-to-one observations at this poin t. Psychiatry will continue to follow him and my next meeting should be on 01/09/17, to ass ess whether he is a danger to himself. For now, I would continue to treat with mirtazapine at the cu rrent dose and we will try to get a sense as to how dangerous the patient is to himself. We will al so try to get collateral information from his family. Thank you for the interesting consult, and Psychiatry will continue to co-manage the patient. [id number]/[facility] #: [id number]
[2017-01-07] MEDS: Mirtazapine TAB* 15 MG PO SCH (20:54)
[2017-01-08] MEDS: Omeprazole CAP* 20 MG PO SCH (05:58)
[2017-01-08] MEDS ORDERED: Metoprolol Tartrate TAB* 25 MG PO SCH (08:10)
[2017-01-08] MEDS: Atorvastatin* 40 MG TAB PO SCH (08:41)
[2017-01-08] MEDS: busPIRone TAB* 5 MG PO SCH ×2 (08:41→21:49)
[2017-01-08] MEDS: Aspirin TAB* 325 MG PO SCH (08:41)
[2017-01-08] MEDS ORDERED: Digoxin TAB* 0.25 MG PO ONE (10:50)
--- NOTE | 2017-01-08 12:04 | PN ---
Subjective Date of Service: 01/08/17 Interval History: Pt is feeling better today. He states he is less depressed today. He states he feels his R LE is stronger today than it has been. He took a few steps with PT. He is still struggling with why this happened to him. Objective Active Medications: Acetaminophen (Tylenol Tab*) 650 mg PO Q6H PRN PRN Reason: FEVER/PAIN Albuterol (Ventolin 2.5 Mg/3 Ml Neb.Kelsey*) 2.5 mg INH Q2H PRN PRN Reason: SOB/WHEEZING Aspirin (Aspirin Tab*) 325 mg PO DAILY [facility] Last Admin: 01/08/17 08:41 Dose: 325 mg Atorvastatin Calcium (Lipitor*) 40 mg PO QAM [facility] Last Admin: 01/08/17 08:41 Dose: 40 mg Buspirone HCl (Buspar Tab*) 5 mg PO BID [facility] Last Admin: 01/08/17 08:41 Dose: 5 mg Metoprolol Tartrate (Lopressor Tab*) 25 mg PO TID [facility] Last Admin: 01/08/17 08:41 Dose: 25 mg Mirtazapine (Remeron Tab*) 15 mg PO BEDTIME [facility] Last Admin: 01/07/17 20:54 Dose: 15 mg Omeprazole (Prilosec Cap*) 20 mg PO DAILY@0600 [facility] Last Admin: 01/08/17 05:58 Dose: 20 mg Ondansetron HCl (Zofran Inj*) 4 mg IV Q6H PRN PRN Reason: NAUSEA Senna (Senokot Tab*) 1 tab PO BEDTIME PRN PRN Reason: CONSTIPATION Last Admin: 01/06/17 20:51 Dose: 1 tab Vital Signs 01/07/17 01/07/17 01/07/17 13:41 14:06 16:21 Temperature 98.2 F 97.4 F Pulse Rate 51 60 Respiratory 16 18 Rate Blood Pressure 82/56 101/59 108/69 (mmHg) O2 Sat by Pulse 95 96 Oximetry 01/07/17 01/07/17 01/07/17 19:56 20:00 20:50 Temperature 97.8 F Pulse Rate 57 89 Respiratory 18 18 Rate Blood Pressure 112/57 110/61 (mmHg) O2 Sat by Pulse 95 Oximetry 01/07/17 01/08/17 01/08/17 23:56 00:00 03:32 Temperature 98.1 F 98.2 F Pulse Rate 80 75 Respiratory 20 20 Rate Blood Pressure 109/76 95/70 (mmHg) O2 Sat by Pulse 95 18 94 Oximetry 01/08/17 01/08/17 01/08/17 07:59 08:00 08:39 Temperature 98.5 F Pulse Rate 79 Respiratory 16 18 Rate Blood Pressure 94/64 (mmHg) O2 Sat by Pulse 97 98 Oximetry 01/08/17 08:40 Temperature Pulse Rate Respiratory Rate Blood Pressure (mmHg) O2 Sat by Pulse 96 Oximetry Oxygen Devices in Use Now: None Appearance: Middle aged male sitting up in a chair, NAD Eyes: No Scleral Icterus Ears/Nose/Mouth/Throat: Mucous Membranes Moist Respiratory: Symmetrical Chest Expansion and Respiratory Effort, Clear to Auscultation Cardiovascular: NL Sounds; No Murmurs; No JVD, No Edema, - - irregularly irregular, slightly tachycardic Abdominal: NL Sounds; No Tenderness; No Distention Extremities: No Clubbing, Cyanosis Skin: No Rash or Ulcers, No Nodules or Sclerosis Neurological: Alert and Oriented x 3, - - dysarthric Result Diagrams: 01/06/17 06:09 01/06/17 06:09 Microbiology and Other Data: Microbiology 01/02/17 22:40 Nasal Screen MRSA (PCR)(GAVIN) - Final Nasal Mrsa Negative Assess/Plan/Problems-Billing Mr Jones is a 56 yo M who has a h/o afib who presented to the ER with c/o dysarthria, visual disturbance, RUE weakness and bilateral LE weakness and was found to have acute CVA. - Patient Problems (1) Cerebrovascular accident involving posterior circulation Current Visit: Yes Status: Acute Code(s): I63.50 - CEREB INFRC DUE TO UNSP OCCLS OR STENOS OF UNSP CEREB ARTERY SNOMED Code(s): 376579799 Comment: The patient received tPA on presentation to the ER. His deficits have improved though he still needs STR. Continue ASA for now but he will need full anticoagulation. Dr. Hoyos to see the patient today and leave recommendations. Continue antidepressant for his post stroke depression. Continue PT/OT/speech (2) Afib Current Visit: Yes Status: Acute Code(s): I48.91 - UNSPECIFIED ATRIAL FIBRILLATION SNOMED Code(s): 69587172 Comment: Digoxin worked well. Will start digoxin 0.25mg po daily and monitor the HR. (3) Depression Current Visit: Yes Status: Acute Code(s): F32.9 - MAJOR DEPRESSIVE DISORDER , SINGLE EPISODE, UNSPECIFIED SNOMED Code(s): 73899277 Comment: Pt is improving on remeron (less depressed and angry this am). Continue remeron for now. (4) HLD (hyperlipidemia) Current Visit: Yes Status: Acute Code(s): E78.5 - HYPERLIPIDEMIA, UNSPECIFIED SNOMED Code(s): 66435954 Comment: Continue lipitor. (5) GERD (gastroesophageal reflux disease) Current Visit: Yes Status: Acute Code(s): K21.9 - GASTRO-ESOPHAGEAL REFLUX DISEASE WITHOUT ESOPHAGITIS SNOMED Code(s): 351013338 Comment: Continue omeprazole. (6) DVT prophylaxis Current Visit: Yes Status: Acute Code(s): TYZ2135 - SNOMED Code(s): 876454722 Comment: SCDs (7) Full code status Current Visit: Yes Status: Acute Code(s): Z78.9 - OTHER SPECIFIED HEALTH STATUS SNOMED Code(s): 313328954
--- NOTE | 2017-01-08 12:53 | CONSULT ---
Identification - Patient Identification Reason for Psychiatric Consultation: Suicidal Ideation -: Patient is a 56 year old, M admitted on 01/02/17. - MHU Identification Employment Status: Employed Hx Psychiatric Hospitalization: No History - Objective HPI: Bernardino is seen again today by the psych consult service for follow up evaluation of depression and suicidality. He is accompanied today by his niece, Tabby Obrien, who reports that she has had a history of depression herself and has benefitted from antidepressant medication and has been encouraging him to be adherent with the mirtazapine that was recently initiated by the primary team. Bernardino is sitting up, eating 100% of his lunch, and appears more energetic and interactive than yesterday. He remains somewhat cantankerous and complains about the government and society, particularly the amount of debt that modern Americans take on. He has a good sense of humor and jokes that he's going to play the [employer] and pay off all his extended family's credit card bills. He continues to argue that suicide is an individual choice and medical providers have no right to meddle in people's personal decisions. His niece reports that he has always made pessimistic suicidal statements and indicates that it is something of a family trait, in that her father, the patient's brother, always made similar statements as well. She denies that he represents any formal risk to himself and reports that he does not own any firearms. The patient continues to decline transfer to the [facility] and his niece does not feel this would be beneficial. He is tolerating mirtazapine well and states he is considering staying on this after discharge. Lab Results: Laboratory Tests 01/03/17 01/04/17 01/04/17 00:43 05:30 05:30 WBC 8.0 RBC 4.96 Hgb 14.8 Hct 45 MCV 91 MCH 30 MCHC 33 RDW 14 Plt Count 247 MPV 8 INR (Anticoag Therapy) Sodium 136 Potassium 4.2 Chloride 108 Carbon Dioxide 22 Anion Gap 6 BUN 11 Creatinine 0.87 Est GFR ( Amer) 116.3 Est GFR (Non-Af Amer) 90.4 BUN/Creatinine Ratio 12.6 Glucose 87 Calcium 8.5 L Phosphorus 2.5 Magnesium 2.0 Urine Color Yellow Urine Appearance Clear Urine pH 6.0 Ur Specific Parks 1.047 H Urine Protein Negative Urine Ketones Trace H Urine Blood Negative Urine Nitrate Negative Urine Bilirubin Negative Urine Urobilinogen Negative Ur Leukocyte Esterase Negative Urine Glucose Negative 01/06/17 01/06/17 01/06/17 06:09 06:09 07:56 WBC 7.5 RBC 5.27 Hgb 15.6 Hct 48 MCV 91 MCH 30 MCHC 33 RDW 14 Plt Count 283 MPV 8 INR (Anticoag Therapy) 1.01 Sodium 136 Potassium 3.7 Chloride 102 Carbon Dioxide 24 Anion Gap 10 BUN 13 Creatinine 0.93 Est GFR ( Amer) 107.7 Est GFR (Non-Af Amer) 83.7 BUN/Creatinine Ratio 14.0 Glucose 124 H Calcium 9.0 Phosphorus Magnesium Urine Color Urine Appearance Urine pH Ur Specific Parks Urine Protein Urine Ketones Urine Blood Urine Nitrate Urine Bilirubin Urine Urobilinogen Ur Leukocyte Esterase Urine Glucose Exam Appearance: Healthy Appearing Hygiene: Normal Grooming: Fairly Well Kept Psychomotor Activities: Abnormal-Decreased Exhibits Abnormal Movement: No Attitude and Relatedness: Cooperative Eye Contact: Fair - Speech Quality: Unpressured Latencies: Normal Quantity: Terse Patient's Decription of Mood: "Fine" Observed Affect: Fair Affect Consistent with: Euthymia Patient's Thought Process: Coherent Thought Content: No Passive Wish, No Suicidal Planning, No Homicidal Ideation, No Paranoid Ideation Experiencing Hallucinations: No, Sensorium is Clear Type of Hallucinations: Visual: No, Auditory: No, Command: No Level of Consciousness: Alert Orientation: Yes Intact, Yes Orientated to Time, Yes Orientated to Place, Yes Orientated to Person Impulse Control: Tenuous Insight and Judgement: Fair Impression - Impression Clinical Impression: 56 y.o. 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 The patient speaks of suicide philosophically and his family indicates he has always done so. He denies being an acute risk to himself and family supports this. Merits Inpatient Hospitalization: No Problem List - MHU Problems Type of Problem: Mood Status of Problem: Active Plan - Treatment Plan Treatment Plan: The patient suffers from Major Depression and is now receiving therapy with mirtazapine 15mg PO qhs. Recommend continuation of this and referral to [facility] services on an outpatient basis. The patient is not likely to benefit from inpatient psychiatric hospitalization. Psychiatry service will continue to follow. Continued Medication Management: Start Medication Medications: Current Medications Acetaminophen (Tylenol Tab*) 650 mg PO Q6H PRN PRN Reason: FEVER/PAIN Albuterol (Ventolin 2.5 Mg/3 Ml Neb.Kelsey*) 2.5 mg INH Q2H PRN PRN Reason: SOB/WHEEZING Aspirin (Aspirin Tab*) 325 mg PO DAILY [facility] Last Admin: 01/08/17 08:41 Dose: 325 mg Atorvastatin Calcium (Lipitor*) 40 mg PO QAM [facility] Last Admin: 01/08/17 08:41 Dose: 40 mg Buspirone HCl (Buspar Tab*) 5 mg PO BID [facility] Last Admin: 01/08/17 08:41 Dose: 5 mg Metoprolol Tartrate (Lopressor Tab*) 25 mg PO TID [facility] Last Admin: 01/08/17 08:41 Dose: 25 mg Mirtazapine (Remeron Tab*) 15 mg PO BEDTIME [facility] Last Admin: 01/07/17 20:54 Dose: 15 mg Omeprazole (Prilosec Cap*) 20 mg PO DAILY@0600 [facility] Last Admin: 01/08/17 05:58 Dose: 20 mg Ondansetron HCl (Zofran Inj*) 4 mg IV Q6H PRN PRN Reason: NAUSEA Senna (Senokot Tab*) 1 tab PO BEDTIME PRN PRN Reason: CONSTIPATION Last Admin: 01/06/17 20:51 Dose: 1 tab - Discharge Plan Discharge Plan: Outpatient Follow Up
[2017-01-08] MEDS: Metoprolol Tartrate TAB* 50 mg PO SCH ×2 (13:36→21:49)
--- NOTE | 2017-01-08 16:35 | RAD ---
INDICATION: [place] stroke COMPARISON: Most recent CT examination is dated January 03, 2017 at did not show any acute intracranial abnormality. MRI of the brain dated January 03, 2017 indicating possible presence of posterior circulation infarctions to the cerebellum and left avni. TECHNIQUE: Contiguous axial sections of the brain were obtained from the skull base to the vertex without contrast. FINDINGS: The ventricles, cisterns and sulci exhibit symmetrical involutional changes similar to the previous CT examination. The mena-white matter differentiation is adequately maintained and there is no sulcal effacement. No significant focal abnormality or mass effect is present. There is no evidence for intracranial hemorrhage. No significant focal osseous abnormality is present. The visualized portion of the paranasal sinuses and mastoid air cells appear clear. IMPRESSION: No CT evidence of acute intracranial abnormality.
[2017-01-08] MEDS ORDERED: Morphine INJ* 2 MG/ML 1 ML SYRINGE IV PRN (18:48)
[2017-01-08] MEDS: Mirtazapine TAB* 15 MG PO SCH (21:49)
--- NOTE | 2017-01-09 04:50 | PN ---
PROGRESS NOTE: DATE OF FOLLOWUP: 01/08/17 HISTORY OF PRESENT ILLNESS: Mr. Jones is a 56-year-old man with a history of atrial fibrillation, who was apparently off anticoagulation when he experienced posterior circulation stroke on January 02 and was treated with tPA by Dr. Brooks. He was subsequently seen in followup the following day by Dr. Lam and recommendation was made to hold anticoagulation at this time given the recent stroke. He has been on aspirin 325 mg daily as well as metoprolol and atorvastatin. He has also been noted to be depressed with passive suicidal wishes and has been evaluated by Psychiatry yesterday. Dr. Esteves had started mirtazapine at bedtime as a result of this. The patient reports that he had been taking an anti-anxiety medication and metoprolol as an outpatient, but he could not remember the name of the anti-anxiety medication, though his home med list indicates this may have been BuSpar. He also is today unsure of what the anticoagulant was that he was taking and indicates that his bone cooking operator had given him samples and he had not yet gotten it through his pharmacy. He previously told Dr. Esteves he thought it was Xarelto. He also indicates that his bone cooking operator told him that he could stop it as of January 13, because he was no longer in atrial fibrillation but when he ran out of it, he stopped it earlier than that, but then also indicates that he called his primary care physician's office for a prescription for the medication and had some difficulty obtaining that and then had this stroke which resulted in his admission. I am asked to see the patient in followup to weigh in on timing of restarting anticoagulation and also with the depression following his stroke. The patient indicates that he is doing better today. He has not experienced any diplopia today and this is the first time since he had the stroke. He indicates he is getting stronger on his right side as well. MEDICATIONS: In-house medications were reviewed and include: 1. Aspirin 325 mg daily. 2. Lipitor 40 mg daily. 3. BuSpar 5 mg twice daily. 4. Lopressor 50 mg 3 times daily. 5. Remeron 15 mg at bedtime. This is not an exhaustive list. PHYSICAL EXAMINATION: Vital Signs: Temperature 97.6, blood pressure 107/80, heart rate 77, and oxygen saturation is 95% on room air. On general examination, he is lying semi-reclined in the chair beside his bed. He was eating candy when I entered the room. He had some coughing after swallowing his candy. His heart was in irregular rhythm. Lungs were clear to auscultation bilaterally and there were no carotid bruits. On neurologic examination, his speech is mild to moderately dysarthric but he is mostly understandable. There is no apparent aphasia. His pupils are equal, round, and reactive from 3 to 2 mm bilaterally. His versions appear essentially full today and he denies any diplopia in any clifton of gaze. Clifton are full to confrontation. He has right lower facial weakness. His tongue protrudes in the midline and the palate elevates symmetrically. On motor examination, he has a relatively mild right hemiparesis at this point in his arm. There is minimal right pronator drift. In the right lower extremity, he has full strength except potentially in the right foot where his dorsiflexion appeared weak, but he also indicates that he broken his ankle several years ago. Sensation is intact to light touch throughout. There is mild ataxia on right [id number] testing and moderate ataxia in the bilateral lower extremities greater on the right. His right toes are upgoing. He was not ambulated. DIAGNOSTIC STUDIES: MRI scan of the brain dated January 03 was personally reviewed and showed areas of restricted diffusion in the left avni as well as punctate areas in the bilateral cerebellar hemispheres. CT angiogram of the head and neck report was reviewed and did not show any internal carotid artery stenosis and no obvious aneurysm, vascular malformation , occlusion, or stenosis of the intracranial circulation. Furthermore, the vertebral arteries were patent. IMPRESSION AND PLAN: David Jones is a 56-year-old man with atrial fibrillation, who was not on anticoagulation and experienced posterior circulation stroke, presumably related to cardioembolic phenomenon. He appears to be improving in terms of his stroke symptoms as compared to Dr. Lam's last followup on January 03. At this point, I would like to obtain a repeat CT of the brain to ensure no areas of hemorrhage are noted in the areas of stroke and given that he is about a week out from his event, I think it would be safe to restart anticoagulation once we confirm for certain which anticoagulant he was on previously. We should contact his bone cooking operator's office tomorrow to confirm this. With respect to his depression and stroke recovery, there is data that Prozac improves motor recovery following a stroke and so I think this should be considered for treatment of his depression in the setting of his stroke. He is also being followed by Psychiatry and I would be interested on their input as to whether they feel this would be an acceptable choice. I did discuss this with the patient, who was not absolutely opposed to taking an antidepressant at this point, but indicates that he feels he has more anxiety than depression. Finally, I note that Mr Jones is currently ordered for a pureed diet, but was eating chocolate candy when I entered the room. This poses an aspiration risk to him and should be restricted until his dysphagia improves. If I can be of further assistance during Mr. Jones's hospitalization, please do not hesitate to let me know. [id number]/[facility] #: [id number] AYAKA
[2017-01-09] MEDS: Omeprazole CAP* 20 MG PO SCH (06:23)
[2017-01-09] MEDS: busPIRone TAB* 5 MG PO SCH ×2 (08:39→23:34)
[2017-01-09] MEDS: Atorvastatin* 40 MG TAB PO SCH (08:39)
[2017-01-09] MEDS: Aspirin TAB* 325 MG PO SCH (08:39)
[2017-01-09] MEDS: Metoprolol Tartrate TAB* 50 mg PO SCH ×3 (08:39→23:35)
[2017-01-09] MEDS: Digoxin TAB* 0.25 MG PO SCH (10:47)
--- NOTE | 2017-01-09 11:30 | PN ---
Subjective Date of Service: 01/09/17 Interval History: Pt is feeling ok. He acknowledged today that he is depressed. He again questions why God has not provided him a . He states he walked around the floor with PT this AM. He had a visit by speech therapy who has upgraded him to mechanical ground. Objective Active Medications: Acetaminophen (Tylenol Tab*) 650 mg PO Q6H PRN PRN Reason: FEVER/PAIN Albuterol (Ventolin 2.5 Mg/3 Ml Neb.Kelsey*) 2.5 mg INH Q2H PRN PRN Reason: SOB/WHEEZING Aspirin (Aspirin Tab*) 325 mg PO DAILY [facility] Last Admin: 01/09/17 08:39 Dose: 325 mg Atorvastatin Calcium (Lipitor*) 40 mg PO QAM [facility] Last Admin: 01/09/17 08:39 Dose: 40 mg Buspirone HCl (Buspar Tab*) 5 mg PO BID [facility] Last Admin: 01/09/17 08:39 Dose: 5 mg Digoxin (Lanoxin Tab*) 0.25 mg PO DAILY [facility] Last Admin: 01/09/17 10:47 Dose: 0.25 mg Metoprolol Tartrate (Lopressor Tab*) 50 mg PO TID [facility] Last Admin: 01/09/17 08:39 Dose: 50 mg Mirtazapine (Remeron Tab*) 15 mg PO BEDTIME [facility] Last Admin: 01/08/17 21:49 Dose: 15 mg Morphine Sulfate (Morphine Inj (Syringe)*) 1 mg IV Q4H PRN PRN Reason: PAIN Last Admin: 01/08/17 19:02 Dose: 1 mg Omeprazole (Prilosec Cap*) 20 mg PO DAILY@0600 [facility] Last Admin: 01/09/17 06:23 Dose: 20 mg Ondansetron HCl (Zofran Inj*) 4 mg IV Q6H PRN PRN Reason: NAUSEA Senna (Senokot Tab*) 1 tab PO BEDTIME PRN PRN Reason: CONSTIPATION Last Admin: 01/06/17 20:51 Dose: 1 tab Vital Signs 01/08/17 01/08/17 01/08/17 11:34 16:18 19:02 Temperature 97.6 F 98.1 F Pulse Rate 77 73 Respiratory 16 16 18 Rate Blood Pressure 107/80 96/70 (mmHg) O2 Sat by Pulse 95 91 Oximetry 01/08/17 01/08/17 01/08/17 20:00 20:02 20:31 Temperature 98.0 F Pulse Rate 49 Respiratory 24 24 24 Rate Blood Pressure 106/63 (mmHg) O2 Sat by Pulse 93 Oximetry 01/09/17 01/09/17 01/09/17 00:17 00:48 04:29 Temperature 97.9 F 97.5 F Pulse Rate 82 20 62 Respiratory 20 99 16 Rate Blood Pressure 100/56 107/64 (mmHg) O2 Sat by Pulse 93 93 93 Oximetry 01/09/17 01/09/17 01/09/17 04:32 04:54 08:00 Temperature 97.5 F 98.0 F Pulse Rate 62 64 Respiratory 16 20 18 Rate Blood Pressure 107/64 101/69 (mmHg) O2 Sat by Pulse 93 96 Oximetry 01/09/17 01/09/17 08:36 08:41 Temperature 97.2 F Pulse Rate 86 62 Respiratory 16 16 Rate Blood Pressure 100/71 (mmHg) O2 Sat by Pulse 95 95 Oximetry Oxygen Devices in Use Now: None Appearance: Middle aged male sitting up in a chair, NAD Eyes: No Scleral Icterus Ears/Nose/Mouth/Throat: Mucous Membranes Moist Respiratory: Symmetrical Chest Expansion and Respiratory Effort, Clear to Auscultation Cardiovascular: NL Sounds; No Murmurs; No JVD, No Edema, - - irregularly irregular Abdominal: NL Sounds; No Tenderness; No Distention Extremities: No Clubbing, Cyanosis Skin: No Rash or Ulcers, No Nodules or Sclerosis Neurological: Alert and Oriented x 3, - - + dysarthric speech but understandable Result Diagrams: 01/06/17 06:09 01/06/17 06:09 Microbiology and Other Data: Microbiology 01/02/17 22:40 Nasal Screen MRSA (PCR)(GAVIN) - Final Nasal Mrsa Negative Assess/Plan/Problems-Billing Mr Jones is a 56 yo M who has a h/o afib who presented to the ER with c/o dysarthria, visual disturbance, RUE weakness and bilateral LE weakness and was found to have acute CVA. - Patient Problems (1) Cerebrovascular accident involving posterior circulation Current Visit: Yes Status: Acute Code(s): I63.50 - CEREB INFRC DUE TO UNSP OCCLS OR STENOS OF UNSP CEREB ARTERY SNOMED Code(s): 359044752 Comment: Awaiting rehab bed offer. Stop ASA and resume xarelto-medication list confirmed with pt's biological sciences instructor. Continue PT/OT/speech. (2) Afib Current Visit: Yes Status: Acute Code(s): I48.91 - UNSPECIFIED ATRIAL FIBRILLATION SNOMED Code(s): 04806432 Comment: HR has been very variable. Continue metoprolol tartrate 50mg TID and digoxin 0.25mg daily. (3) Depression Current Visit: Yes Status: Acute Code(s): F32.9 - MAJOR DEPRESSIVE DISORDER , SINGLE EPISODE, UNSPECIFIED SNOMED Code(s): 90485528 Comment: Continue remeron for now but ? switch to prozac as there is data that it may help with motor recovery following stroke. (4) HLD (hyperlipidemia) Current Visit: Yes Status: Acute Code(s): E78.5 - HYPERLIPIDEMIA, UNSPECIFIED SNOMED Code(s): 02562806 Comment: Continue lipitor. (5) GERD (gastroesophageal reflux disease) Current Visit: Yes Status: Acute Code(s): K21.9 - GASTRO-ESOPHAGEAL REFLUX DISEASE WITHOUT ESOPHAGITIS SNOMED Code(s): 738134256 Comment: Continue omeprazole. (6) DVT prophylaxis Current Visit: Yes Status: Acute Code(s): CPY9200 - SNOMED Code(s): 224677903 Comment: xarelto (7) Full code status Current Visit: Yes Status: Acute Code(s): Z78.9 - OTHER SPECIFIED HEALTH STATUS SNOMED Code(s): 429187979
[2017-01-09] MEDS: Rivaroxaban TAB(*) 20 MG TAB PO SCH (16:22)
--- NOTE | 2017-01-09 22:08 | PN ---
Progress Note - Progress Note Note: Pt not being d/ramon on antiplatelet as his CVA is felt to be cardioembolic for which he is receiving xarelto.
[2017-01-09] MEDS: Mirtazapine TAB* 15 MG PO SCH (23:38)
[2017-01-10] MEDS: Omeprazole CAP* 20 MG PO SCH (06:22)
--- NOTE | 2017-01-10 08:23 | DS ---
CC: Dr. Bunch, [place], [place] * DISCHARGE SUMMARY: DATE OF ADMISSION: 01/02/17 DATE OF DISCHARGE: 01/10/17 PRIMARY CARE PROVIDER: Unknown. SWIMMING POOL INSTALLER: Dr. Bunch, [place], [place]. PRINCIPAL DIAGNOSIS: Posterior circulation embolic CVA. SECONDARY DIAGNOSES: 1. Atrial fibrillation. 2. Hyperlipidemia. 3. Gastroesophageal reflux disease. 4. Depression. DISCHARGE MEDICATIONS: 1. Xarelto 20 mg p.o. daily. 2. BuSpar 5 mg p.o. b.i.d. 3. Protonix 40 mg p.o. daily. 4. Senna one tab p.o. q.h.s. p.r.n. constipation. 5. Remeron 15 mg p.o. q.h.s. 6. Metoprolol tartrate 50 mg p.o. t.i.d. 7. Digoxin 0.25 mg p.o. daily. 8. Lipitor 40 mg p.o. daily. HOSPITAL COURSE: Mr. Irving is a 56-year-old male who has a known history of paroxysmal atrial fibrillation who, most recently, was in sinus rhythm per his insole tape stitcher [facility]'s notes and was supposed to be taking Xarelto as an outpatient who presented to the emergency room on 01/02/17 with complaints of slurred speech, gaze disturbance, and right upper and lower extremity ataxia. The patient underwent CT of the brain which revealed increased attenuation of the M1 segment of the right MCA, concerning for MCA thrombus, with a dense MCA sign given the history of stroke. He then underwent CTA of the head and neck which revealed no internal carotid artery stenosis, no aneurysm, vascular malformation , occlusion, or stenosis of the visualized intracranial circulation. The patient was seen in consultation by Dr. Brooks on the night of admission who determined that the patient was an appropriate TPA candidate, and he received TPA. On 01/03/17, the patient then underwent MRI of the brain which revealed diffusion weighted images demonstrating punctate areas of restriction of diffusion in both cerebellar hemispheres as well as in the left avni. The patient has a history of known atrial fibrillation; in fact, had been off his rate-controlling agents and Xarelto since the prior to admission. The patient states that he ran out of his rate-controlling agents, but decided to hold the Xarelto while waiting for the rest of his medications to get filled. The patient was ultimately transferred to the medical floor on 01/05/17. On , the patient was doing better in terms of neurologic status; however, he was severely depressed. The patient spoke passively about suicide. He continually questioned why this had to happen to him. He was very tearful during my evaluation on that day. He did agree to being started on an antidepressant; and, therefore, he was started on Remeron that evening. The following day, the patient had noticeable improvement in his depression symptoms where he was not quite as angry or tearful. The patient was tolerating the Remeron without difficulty. In terms of his neurologic status, the patient continued to progress with improvement in his symptoms, specifically his ability to swallow. The patient has been upgraded from a pureed diet to mechanical ground with extra gravy and sauces. The patient has been also improving in terms of his ability to ambulate, though he is impulsive and unaware of his deficits. The patient, at this point, is ready for short- term rehab. Given he is now a week out from his stroke and the TPA administration, the decision was made to resume the Xarelto he was supposed to be taking as an outpatient. The patient has been instructed that he is to remain on this medication or another form of anticoagulation indefinitely. The patient's atrial fibrillation was difficult to control during this hospitalization. His blood pressure is soft, making the use of beta blockers or calcium channel blockers difficult. His metoprolol dose was already increased from 50 mg twice daily to 50 mg 3 times daily. As his heart rate was still uncontrolled, he was started on digoxin. He did get loaded with this. With the digoxin, his heart rate has been under much better control. The patient underwent transthoracic echocardiogram on the day after admission which revealed a normal EF of 55% to 60%, mild dilation of the ascending aorta, no clear cardioembolic source. FOLLOWUP CONCERNS: The patient is ready for discharge to subacute rehab today, 01/10/17. ACTIVITY LEVEL: As tolerated. DIET: Regular mechanical ground with extra gravy and sauces. CONDITION ON DISCHARGE: Stable. TIME SPENT: 45 minutes were spent discharging this patient. [id number]/[facility] #: [id number] [facility]
[2017-01-10] MEDS: busPIRone TAB* 5 MG PO SCH ×2 (10:14→22:02)
[2017-01-10] MEDS: Digoxin TAB* 0.25 MG PO SCH (10:19)
[2017-01-10] MEDS: Atorvastatin* 40 MG TAB PO SCH (10:19)
[2017-01-10] MEDS: Metoprolol Tartrate TAB* 50 mg PO SCH ×3 (10:19→22:02)
--- NOTE | 2017-01-10 14:27 | PN ---
Subjective Date of Service: 01/10/17 Interval History: HOSPITALIST PROGRESS NOTE Patient seen and examined at bedside. Offers no complaints at this time. Episode of 7 beats of Afib asymptomatic. Family History: Unchanged from Admission Social History: Unchanged from Admission Past Medical History: Unchanged from Admission Objective Active Medications: Acetaminophen (Tylenol Tab*) 650 mg PO Q6H PRN PRN Reason: FEVER/PAIN Albuterol (Ventolin 2.5 Mg/3 Ml Neb.Kelsey*) 2.5 mg INH Q2H PRN PRN Reason: SOB/WHEEZING Atorvastatin Calcium (Lipitor*) 40 mg PO QAM [facility] Last Admin: 01/10/17 10:19 Dose: 40 mg Buspirone HCl (Buspar Tab*) 5 mg PO BID [facility] Last Admin: 01/10/17 10:14 Dose: 5 mg Digoxin (Lanoxin Tab*) 0.25 mg PO DAILY [facility] Last Admin: 01/10/17 10:19 Dose: 0.25 mg Metoprolol Tartrate (Lopressor Tab*) 50 mg PO TID [facility] Last Admin: 01/10/17 14:08 Dose: 50 mg Mirtazapine (Remeron Tab*) 15 mg PO BEDTIME [facility] Last Admin: 01/09/17 23:38 Dose: 15 mg Omeprazole (Prilosec Cap*) 20 mg PO DAILY@0600 [facility] Last Admin: 01/10/17 06:22 Dose: 20 mg Ondansetron HCl (Zofran Inj*) 4 mg IV Q6H PRN PRN Reason: NAUSEA Rivaroxaban (Xarelto (*)) 20 mg PO DAILY@1700 [facility] Last Admin: 01/09/17 16:22 Dose: 20 mg Senna (Senokot Tab*) 1 tab PO BEDTIME PRN PRN Reason: CONSTIPATION Last Admin: 01/06/17 20:51 Dose: 1 tab Vital Signs 01/10/17 01/10/17 01/10/17 07:38 08:00 10:19 Temperature Pulse Rate 58 112 Respiratory 16 20 Rate Blood Pressure 95/62 (mmHg) O2 Sat by Pulse 96 Oximetry 01/10/17 11:54 Temperature 97.5 F Pulse Rate 42 Respiratory 20 Rate Blood Pressure 104/67 (mmHg) O2 Sat by Pulse 96 Oximetry Oxygen Devices in Use Now: None Appearance: Pleasant gentleman sitting up in a chair in NAD. Eyes: No Scleral Icterus Ears/Nose/Mouth/Throat: Mucous Membranes Moist Neck: Trachea Midline Respiratory: Symmetrical Chest Expansion and Respiratory Effort, Clear to Auscultation Cardiovascular: - - Normal S1 and S2, irregularly irregular Abdominal: NL Sounds; No Tenderness; No Distention Neurological: Alert and Oriented x 3, - - dysarthric Lines/Tubes/Other Access: Clean, Dry and Intact Peripheral IV Nutrition: Taking PO's Result Diagrams: 01/06/17 06:09 01/06/17 06:09 Assess/Plan/Problems-Billing Asssessment: Mr Jones is a 56 yo M who has a h/o afib who presented to the ER with c/o dysarthria, visual disturbance, RUE weakness and bilateral LE weakness and was found to have acute CVA. - Patient Problems (1) Cerebrovascular accident involving posterior circulation Comment: - This was an embolic CVA. - Continue xarelto. - Continue PT/OT/speech. - Awaiting insurance auth to d/c to rehab. (2) Afib Comment: - Rate is controlled with Metoprolol and Digoxin. - Had one episode of 7 beats of Afib, asymptomatic. (3) Depression Comment: - Continue Remeron. (4) HLD (hyperlipidemia) Comment: - Continue Atorvastatin. (5) GERD (gastroesophageal reflux disease) Comment: - Continue omeprazole. (6) DVT prophylaxis Comment: - Xarelto. (7) Full code status Status and Disposition: Inpatient. Awaiting insurance auth for rehab.
[2017-01-10] MEDS: Rivaroxaban TAB(*) 20 MG TAB PO SCH (17:19)
[2017-01-10] MEDS: Mirtazapine TAB* 15 MG PO SCH (22:03)
[2017-01-11] MEDS ORDERED: NS 0.9% IV ONE (01:00)
[2017-01-11] MEDS: Omeprazole CAP* 20 MG PO SCH (05:52)
[2017-01-11 08:17] VITALS: BP 106/71
[2017-01-11] MEDS: Metoprolol Tartrate TAB* 50 mg PO SCH (08:19)
[2017-01-11] MEDS: Atorvastatin* 40 MG TAB PO SCH (08:19)
[2017-01-11] MEDS: busPIRone TAB* 5 MG PO SCH (08:19)
[2017-01-11] MEDS: Digoxin TAB* 0.25 MG PO SCH (08:20)
--- NOTE | 2017-01-11 08:43 | DCNOTE ---
Subjective Date of Service: 01/11/17 Interval History: HOSPITALIST DISCHARGE ADDENDUM Patient offers no complaints. Looking forward to rehab as he wants to return home [place]. Stable for discharge. See dictated note. Objective Result Diagrams: 01/06/17 06:09 01/06/17 06:09
--- NOTE | 2017-01-11 10:02 | DS ---
CC: Dr. 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 Esteves's discharge summary dictated on 01/09/17. This is just an addendum to update about events that happened after that summary was dictated. The patient remained stable with no new symptoms. He still has dysarthria and mild right hemiparesis. He continues to tolerate his diet well with no signs of choking. His atrial fibrillation rate is better controlled with metoprolol and digoxin. The patient is medically stable to be discharged to [facility] today to continue his rehabilitation process. TIME SPENT: Approximately 15 minutes was spent to complement this discharge. [id number]/CPS #: [id number] MTDD
== END 2017-01-11 12:50 | DRG 45 ==
LOC: ED 19:42 → ICU 21:34 → MEDTELE 01-05 14:25
PROVIDERS: ADMIT Hospitalist; ATTEND Internal Medicine
PROC: 3E03317 Introduction of Other Thrombolytic into Peripheral Vein, Percutaneous Approach (ICD-10-PCS; principal; 2017-01-02)
PROC: 0T9B70Z Drainage of Bladder with Drainage Device, Via Natural or Artificial Opening (ICD-10-PCS; 2017-01-03)
PROC: 0TPBX0Z Removal of Drainage Device from Bladder, External Approach (ICD-10-PCS; 2017-01-05)
DX: I63.411 Cerebral infarction due to embolism of right middle cerebral artery (principal); F33.2 Major depressive disorder, recurrent severe without psychotic features; R45.851 Suicidal ideations; G81.91 Hemiplegia, unspecified affecting right dominant side; I48.91 Unspecified atrial fibrillation; E78.5 Hyperlipidemia, unspecified; K21.9 Gastro-esophageal reflux disease without esophagitis; F41.9 Anxiety disorder, unspecified; R33.9 Retention of urine, unspecified; R27.0 Ataxia, unspecified; R47.1 Dysarthria and anarthria; R29.810 Facial weakness; H53.8 Other visual disturbances; R20.2 Paresthesia of skin; H50.10 Unspecified exotropia; R29.708 NIHSS score 8; I77.819 Aortic ectasia, unspecified site; R27.8 Other lack of coordination; F48.8 Other specified nonpsychotic mental disorders; Z79.01 Long term (current) use of anticoagulants; Z88.0 Allergy status to penicillin; Z88.2 Allergy status to sulfonamides; G44.40 Drug-induced headache, not elsewhere classified, not intractable; T45.615A Adverse effect of thrombolytic drugs, initial encounter
CPT/HCPCS: 36415; 70030; 70450; 70496; 70498; 70551; 71010; 74000; 80048; 80053; 80061; 80162; 81003; 83036; 83605; 83735; 84100; 84484; 85025; 85027; 85610; 85730; 87641; 93005; 93306; 94760; 97112; 97530; A9270-GY; G8996-GN-CK; G8997-GN-CI; J1160; J2270; J2997; Q9967

== ENCOUNTER 2018-05-10 18:58 | Emergency (ER) | payer MEDICAID ==
--- NOTE | 2018-05-10 19:26 | ED ---
Lower Extremity - HPI Summary HPI Summary: This pt is a 58 y/o male presenting to [facility] via EMS from [facility] rehab for right foot pain s/p right foot surgery 5 weeks ago. Pt reports he was involved in an accident where he had to be taken to [facility] for right foot surgery done by Dr. Parson. Surgery involved pin sites and external fixator. He states he was in [place] for 2 weeks and was discharged to [facility] for rehab. He has been taking oxycodone for his pain with relief. Pt states for the past 3 days his foot has been bleeding from the surgery site and his right foot has been red. He notes staff at [facility] have not been cleaning his foot. Pt reports right foot pain, rating it 3 or 4 out of 10 in severity. Denies fever, chills, chest pain, SOB. His last follow up was last week on . Pt has an upcoming appointment for a follow up in [place] in 4 days, on Monday. PMHx includes afib. Pt is currently on Xarelto. - History of Current Complaint Stated Complaint: POSS INFECTION Time Seen by Provider: 05/10/18 19:13 Hx Obtained From: Patient Mechanism Of Injury: Other - s/p surgery 5 weeks ago Onset of Pain: Days Onset/Duration: Days Severity Currently: Moderate Pain Intensity: 4 Pain Scale Used: 0-10 Numeric Timing: Lasting Days Location: Is Discrete @ - right foot Associated Signs And Symptoms: Positive: Redness, Other - bleeding from right foot surgery site. Negative: Fever, Abdominal Pain, Knee Pain Aggravating Factor(s): Nothing Alleviating Factor(s): Nothing Able to Bear Weight: No - Allergies/Home Medications Allergies/Adverse Reactions: Allergies Allergy/AdvReac Type Severity Reaction Status Date / Time MS Penicillins [Penicillins] Allergy Unknown Unknown Verified 01/02/17 20:19 Reaction Details MS Sulfa Antibiotics Allergy Unknown Unknown Verified 01/02/17 20:19 [Sulfa Antibiotics] Reaction Details Penicillins Allergy Unknown Verified 05/10/18 19:19 Reaction Details Sulfa (Sulfonamide Allergy Unknown Verified 05/10/18 19:19 Antibiotics) Reaction Details PMH/Surg Hx/FS Hx/Imm Hx Endocrine/Hematology History: Denies: Hx Diabetes Cardiovascular History: Reports: Hx Atrial Fibrillation, Hx Hypertension GI History: Reports: Hx Gastroesophageal Reflux Disease Sensory History: Denies: Hx Contacts or Glasses, Hx Hearing Aid Opthamlomology History: Denies: Hx Contacts or Glasses Neurological History: Reports: Other Neuro Impairments/Disorders - new onset right sided facial droop with eye involvement Denies: Hx Transient Ischemic Attacks (TIA) Psychiatric History: Reports: Hx Anxiety, Hx Depression - Family History Known Family History: Positive: Cardiac Disease - Social History Alcohol Use: Occasionally Substance Use Type: Reports: None Smoking Status (MU): Never Smoked Tobacco Review of Systems Negative: Fever, Chills Negative: Chest Pain Negative: Shortness Of Breath Musculoskeletal: Other - right foot pain Skin: Other - bleeding from right foot surgery, redness on right foot All Other Systems Reviewed And Are Negative: Yes Physical Exam - Summary Physical Exam Summary: VITAL SIGNS: Reviewed. GENERAL: Patient is a well-developed and nourished male who is lying comfortable in the stretcher. Patient is not in any acute respiratory distress. HEAD AND FACE: No signs of trauma. No ecchymosis, hematomas or skull depressions. No sinus tenderness. EYES: PERRLA, EOMI x 2, No injected conjunctiva, no nystagmus. EARS: Hearing grossly intact. Ear canals and tympanic membranes are within normal limits. MOUTH: Oropharynx within normal limits. NECK: Supple, trachea is midline, no adenopathy, no JVD, no carotid bruit, no c- spine tenderness, neck with full ROM. CHEST: Symmetric, no tenderness at palpation LUNGS: Clear to auscultation bilaterally. No wheezing or crackles. CVS: Regular rate and rhythm, S1 and S2 present, no murmurs or gallops appreciated. ABDOMEN: Soft, non-tender. No signs of distention. No rebound no guarding, and no masses palpated. Bowel sounds are normal. EXTREMITIES: RLE: Right foot with external fixation and swelling. Foot is NOT warm. Mildly tender. Mildly red. He does have a significant amount of dry blood over suture line. NEURO: Alert and oriented x 3. No acute neurological deficits. Speech is normal and follows commands. SKIN: Dry and warm Triage Information Reviewed: Yes Vital Signs On Initial Exam: Initial Vitals Temp Pulse Resp BP Pulse Ox 97.7 F 88 20 116/78 95 05/10/18 19:15 05/10/18 19:15 05/10/18 19:15 05/10/18 19:15 05/10/18 19:15 Vital Signs Reviewed: Yes Diagnostics - Laboratory Result Diagrams: 05/10/18 19:41 05/10/18 19:41 Lab Statement: Any lab studies that have been ordered have been reviewed, and results considered in the medical decision making process. - Radiology Right foot XR Xray Interpretation: No Acute Changes - No fractures, no acute changes Radiology Interpretation Completed By: ED Physician Re-Evaluation - Re-Evaluation First Eval Re-Evaluation Time: 20:23 Comment: I reviewed the lab and XR results with the pt. He will be discharged home to [facility] for rehab. Lower Extremity Course/Dx - Course Course Of Treatment: Pt is a 58 y/o male presenting to [facility] via EMS from [facility] rehab for right foot pain, bleeding, and redness s/p right foot surgery 5 weeks ago. He is concerned for an infection. Pt is already taking oxycodone for the pain with relief. On exam, pt has external fixator on right foot. Right foot is not warm. Pt does not have any leukocytosis. He is not febrile in the ED. XR of right foot shows no acute changes. Pt will be discharged back to [facility] for rehab and was advised to keep his appointment this Monday, in 4 days, to follow up with his orthopedist. He was instructed to return to the ED for any worsening or new symptoms. - Diagnoses Provider Diagnoses: Post-operative state, Status post right foot surgery Discharge - Sign-Out/Discharge Documenting (check all that apply): Patient Departure - Discharge home - Discharge Plan Condition: Stable Disposition: HOME Referrals: Care [facility] [Outside] Additional Instructions: Go to your appointment on Monday as planned to see your orthopedist. Elevate your foot and keep it clean. RETURN TO EMERGENCY DEPARTMENT FOR ANY NEW OR WORSENING SYMPTOMS. - Attestation Statements Document Initiated by Scribe: Yes Documenting Scribe: Raine Baldwin Provider For Whom Chance is Documenting (Include Credential): Ranjeet Bashir MD Scribe Attestation: Raine Aguilar, scribed for Ranjeet Bashir MD on 05/10/18 at 2037.
[2018-05-10 19:50] LABS: ABS Basophils 0.1 10^3/ul (0-0.2); ABS Eosinophils 0.2 10^3/ul (0-0.6); ABS Lymphocytes 2.8 10^3/ul (1.0-4.8); ABS Monocytes 0.9 10^3/ul (0-0.8); ABS Neutrophils 5.9 10^3/ul (1.5-7.7); ABS Nucleated RBC 0 10^3/ul; Eosinophil % 1.7 % (0-6); Hematocrit 50 % (42-52); Hemoglobin 16.5 g/dl (14.0-18.0); Lymphocyte % 28.1 % (25-47); Mean Corpuscular HGB Conc 33 g/dl (31-36); Mean Corpuscular Hemoglobin 31 pg (27-31); Mean Corpuscular Volume 94 fL (80-94); Mean Platelet Volume 7.5 um3 (7.4-10.4); Nucleated Red Blood Cells % 0.1; Platelet Count 297 10^3/ul (150-450); Red Blood Count 5.29 10^6/ul (4.00-5.40); Red Cell Distribution Width 14 % (10.5-15); White Blood Count 9.8 10^3/ul (3.5-10.8)
[2018-05-10 20:01] LABS: INR 1.1 (0.77-1.02)
[2018-05-10 20:05] LABS: EGFR Non-African American 75.6 (>60)
[2018-05-10 22:12] VITALS: BP 118/73
--- NOTE | 2018-05-11 07:43 | RAD ---
INDICATION: Status post external fixation. TECHNIQUE: 3 views of the right foot were obtained. FINDINGS: The patient is status post external fixation. There are external fixator screws which project over the distal tarsal row, distal tibia and calcaneus. There is diffuse soft tissue swelling present. The bones are in normal alignment. No acute fracture is seen. IMPRESSION: 1. DIFFUSE SOFT TISSUE SWELLING. 2. STATUS POST EXTERNAL FIXATION. R0
== END 2018-05-10 22:22 | disposition home or self-care (01) ==
LOC: ED 18:58
DX: Z98.890 Other specified postprocedural states (principal); I48.91 Unspecified atrial fibrillation; I10 Essential (primary) hypertension; K21.9 Gastro-esophageal reflux disease without esophagitis
CPT/HCPCS: 36415; 80053; 83735; 85025; 85610; 85730; 86140; 99283